=== PATIENT | female | born 1940 | race Caucasian/White ===

== ENCOUNTER 2017-02-27 15:56 | Inpatient (IN) | payer MEDICARE, BC ==
--- NOTE | ~2017-02-27 | EGD ---
EGD REPORT [facility] [address] [address] NAME: MAGALIE CARTER : 40 STATUS : ADM IN PAT#: [id number] AGE: 76 ADM/REG DATE : 02/27/17 MR#: [id number] REPORT SERV DATE: 04/03/17 DICTATED BY: OSCAR HOOKS DATE: 04/03/17 REPORT STATUS : Draft TRANSCRIBED BY: [facility] DATE: 04/03/17 Endoscopy Center Patient Name: Magalie Carter Date of : 1940 Attending MD: OSCAR HOOKS MD Procedure Date No Time: 03/23/2017 Procedure: Upper GI endoscopy Indications: Place PEG because patient is unable to eat, Place PEG due to dysphagia, Place PEG due to impaired swallowing Referring MD: RUBEN FRANCO MD Medicines: Monitored Anesthesia Care Complications: No immediate complications. Estimated blood loss: Minimal. Procedure: Pre-Anesthesia Assessment: - ASA Grade Assessment: IV - A patient with severe systemic disease that is a constant threat to life. After obtaining informed consent, the endoscope was passed under direct vision. Throughout the procedure, the patient's blood pressure, pulse, and oxygen saturations were monitored continuously. The GIF [id number] was introduced through the mouth, and advanced to the second part of duodenum. The upper GI endoscopy was accomplished without difficulty. The patient tolerated the procedure well. Findings: No gross lesions were noted in the entire esophagus. The entire examined stomach was normal. The patient was placed in the supine position for PEG placement. The stomach was insufflated to appose gastric and abdominal spring. A site was located in the body of the stomach with excellent transillumination and manual external pressure for placement. The abdominal wall was marked and prepped in a sterile manner. The area was anesthetized with 4 mL of 1% lidocaine. The trocar needle was introduced through the abdominal wall and into the stomach under direct endoscopic view. A snare was introduced through the endoscope and opened in the gastric lumen. The guide wire was passed through the trocar and into the open snare. The snare was closed around the guide wire. The endoscope and snare were removed, pulling the wire out through the mouth. A skin incision was made at the site of needle insertion. The externally removable 20 Fr EndoVive Safety gastrostomy tube was lubricated. The G-tube was passed over the guide wire through the mouth, and into the stomach. The trocar needle was removed, and the gastrostomy tube was pulled out from the stomach through the skin. The guide wire was removed, and the external bumper attached to the gastrostomy tube. The feeding tube was then cut to an appropriate EGD REPORT [address] [place]. [address] NAME: MAGALIE CARTER : [birth year] STATUS : ADM IN [facility]#: [id number] AGE: 76 ADM/REG DATE : 02/27/17 MR#: [id number] REPORT SERV DATE: 04/03/17 DICTATED BY: OSCAR HOOKS DATE: 04/03/17 REPORT STATUS : Draft TRANSCRIBED BY: [employer] DATE: 04/03/17 length. The final position of the gastrostomy tube was confirmed by relook endoscopy, and skin marking noted to be 2.5 cm at the external bumper. The final tension and compression of the abdominal wall by the PEG tube and external bumper were checked and revealed that the bumper was loose and lightly touching the skin. The feeding tube was capped, and the tube site was cleaned and dressed. Estimated blood loss was minimal. No gross lesions were noted in the entire examined duodenum. Impression: - An externally removable PEG placement was successfully completed. Recommendation: - Please follow the post-PEG recommendations including: change dressing once per day, clean site with soap and water daily and dry thoroughly, dry dressing only, remove dressing after 2 weeks, NPO x4 hrs then water today, may use PEG today for meds and water and may use PEG tomorrow for feedings. Procedure Code(s): --- Professional --- 72732, Esophagogastroduodenoscopy, flexible, transoral; with directed placement of percutaneous gastrostomy tube Diagnosis Code(s): --- Professional --- R63.3, Feeding difficulties Z43.1, Encounter for attention to gastrostomy R13.10, Dysphagia, unspecified CPT copyright 2013 [employer]. All rights reserved. The codes documented in this report are preliminary and upon medical record coder review may be revised to meet current compliance requirements. Oscar Hooks MD OSCAR HOOKS MD 03/23/2017 12:16 PM This report has been signed electronically. Number of Addenda: 0 Note Initiated On: 03/23/2017 11:19 AM Scope Withdrawal Time 0 hours 0 minutes 0 seconds [address] [place] [address]
--- NOTE | ~2017-02-27 | IDS ---
Interim Discharge Summary [facility] [address] [place]. [address] NAME: KENYA CARTER : 40 STATUS : ADM IN PAT#: [id number] AGE: 76 ADM/REG DATE : 02/27/17 MR#: [id number] REPORT SERV DATE: 03/27/17 DICTATED BY: SANTO TAPIA DATE: 03/26/17 REPORT STATUS : Draft TRANSCRIBED BY: MODClif DATE: 03/26/17 ADMISSION DATE: 02/27/2017 DISCHARGE DATE: CURRENT INTERIM DIAGNOSES LIST: Includes: 1. Recurrent Clostridium difficile colitis. 2. Lung cancer, non-small cell. 3. Fever of unclear origin or source. Questionable aspiratory event versus tumor fever. 4. Severe protein calorie malnutrition and hypoalbuminemia. 5. Hypothyroidism. Most recent TSH 0.300 with Synthroid dosage reduced during this admission. 6. Debility. 7. Neutropenia, declining white blood cells to 2.7. 8. Sinus tachycardia. 9. Encephalopathy that is multifactorial and toxic versus metabolic at this point. 10.Stomatitis and oral ulcers that are improving. 11.Hypotension that is fully resolved. HISTORY OF PRESENT ILLNESS: A 76-year-old female, originally presented to [facility] with weakness, fever, and diarrhea. Please see initial H and P of Dr. Va Rose as the patient was admitted to the Hospitalist Service for further evaluation and treatment. Please also see the interim discharge summaries of Dr. Tristian Fuentes and Dr. Jaquan Schaefer as this interim summary will cover the dates of 03/20/2017 until 03/26/2017. CONTINUATION OF HOSPITAL COURSE: I began seeing the patient on 03/20/2017, where she was continued on her antibiotic therapy of Vancocin p.o. In review of her lab work, her TSH was noted to be low and her Synthroid dosage was decreased. She was having high fevers of 102.1. Blood cultures and urinalysis were checked with the assistance of Infectious Disease, Dr. Alejandro Jeffers, whom I had numerous conversations with over the course of this week as well, and that workup has been essentially benign with blood cultures so far negative, urinalysis was negative as well. On further discussion, there was question of whether or not she was aspirating, causing these fevers, given her chronically ill and bed- bound state and I discussed at length with the patient and the patient's need for nutritional support and they agreed on placement of a PEG tube, so a PEG was placed on 03/23/[address] Valenzuela, and tube feeding has been initiated. Prior to this, she did have a modified barium swallow study that did show no aspiration seen on exam, but she did have two swallows to clear her food. I have instructed that the patient is to remain n.p.o. and to use her PEG tube for all feeding and medicines at this time. The patient has continued to have fevers on and off, has had a waxing and waning mental status up into the point where she will not even communicate with you at some visits, and other visits, will communicate with you. Overall, outlook and prognosis are poor and I have had multiple discussions with Dr. Fulton, Oncology; Dr. Jeffers, Infectious Disease; and Dr. Sibley, Palliative Care, was consulted and has met with the patient and her family as well to help with transition of care issues and overall planning. I did obtain a CT scan of the abdomen and chest to rule out any type of abscess and other than showing a moderate left pleural effusion, there were no acute findings; all other findings were chronic and known lung Interim Discharge Summary [address] [address] NAME: KENYA CARTER : [birth year] STATUS : ADM IN [facility]#: [id number] AGE: 76 ADM/REG DATE : 02/27/17 MR#: [id number] REPORT SERV DATE: 03/27/17 DICTATED BY: SANTO TAPIA DATE: 03/26/17 REPORT STATUS : Draft TRANSCRIBED BY: JESUS DATE: 03/26/17 cancer. I had a lengthy discussion with the on 03/26/2017 regarding her clinical course, prognosis, decline, and fevers and we discussed palliative care, we discussed hospice, we discussed continuing her current course, and he wishes to continue her present course of treatment with eventual plan of getting to a fdc facility and then home, but is willing to reassess if she further declines. She has a rather flat affect on most visits. We appreciate all of the consultants' help on this admission here. WILLIAM/JESUS Santo Tapia NP / [id number] CC: Temitope Tinoco M.D.
--- NOTE | ~2017-02-27 | CN ---
Consultation Report [facility] [address] [place]. [address] NAME: KENYA CARTER : [birth year] STATUS : ADM IN [facility]#: [id number] AGE: 76 ADM/REG DATE : 02/27/17 MR#: [id number] REPORT SERV DATE: 03/05/17 DICTATED BY: KAI PAN DATE: 03/03/17 REPORT STATUS : Draft TRANSCRIBED BY: MODL DATE: 03/03/17 GENERAL SURGERY CONSULTATION DATE OF CONSULTATION: 03/01/2017 CONSULTED PHYSICIAN: Dr. Pan. REASON FOR CONSULTATION: C. difficile colitis. HISTORY OF PRESENT ILLNESS: This is a 76-year-old female, who was admitted on 02/27/2017 with abdominal pain, lethargy, and fever. Of note, she was recently diagnosed with C. diff colitis a week ago by her primary care doctor and treated as an outpatient with oral vancomycin. For about the past week, she has had persistent abdominal pain and diarrhea as well as fevers and lethargy; this has not improved since being started on p.o. vancomycin for her colitis. She has never had C. diff before, this is a current diagnosis PAST MEDICAL HISTORY: Includes history of a non-small cell lung cancer, status post chemo and radiation therapy secondary to unresectable disease. She also has chronic lymphocytic leukemia, is on chemotherapy for that. She also recently was diagnosed with a small subsegmental pulmonary embolism and is normal on Eliquis for that. She is also hypothyroid and has osteoarthritis. PAST SURGICAL HISTORY: Includes hysterectomy and left hip replacement. MEDICATIONS: Include Tylenol, Eliquis, Lomotil, Advil, Synthroid, Gilotrif which is the chemotherapeutic agent that she is on, as well as vancomycin. SOCIAL HISTORY: No tobacco or alcohol use. FAMILY HISTORY: Noncontributory. PHYSICAL EXAMINATION: VITAL SIGNS: 98/53, heart rate 84, 98.8, 18 respiratory rate, and 100% on room air. GENERAL: Patient is in no acute distress. She is alert and oriented x3. CARDIAC: Regular rate and rhythm. No murmurs, rubs, or gallops. LUNGS: Clear to auscultation bilaterally without wheezes, rales, or rhonchi. ABDOMEN: Distended, tympanic, mildly diffusely tender to palpation, slightly worse in the lower quadrants but overall minimally tender. No guarding or peritonitis. LABORATORY DATA: White blood cell count 1.7, hematocrit 30.8, and platelets 117. Sodium 133, potassium 3.9, chloride 105, CO2 of 18, BUN 14, creatinine 0.9, blood glucose 80, and lactate 2.2. ASSESSMENT AND PLAN: This is a 76-year-old female with C. difficile colitis and neutropenia likely secondary to chemotherapy. She is also on Eliquis. Her CT scan was significant for Consultation Report [place] [id number] [address] [place] [address]. [address] NAME: KENYA CARTER : 40 STATUS : ADM IN [facility]#: [id number] AGE: 76 ADM/REG DATE : 02/27/17 MR#: [id number] REPORT SERV DATE: 03/05/17 DICTATED BY: KAI PAN DATE: 03/03/17 REPORT STATUS : Draft TRANSCRIBED BY: JESUS DATE: 03/03/17 some free fluid in the pelvis but no free air in her abdomen. Her colon is not very dilated or thickened, I am not concerned for perforation at this point. I would not recommend any surgical management of her C. diff colitis at this time. Will continue vancomycin and IV Flagyl. Thank you for the consultation. DICTATED BY: MD JANET Almeida/JESUS Kai Pan M.D. / [id number] CC: MD Shaq Moore II, M.D.
--- NOTE | ~2017-02-27 | CN ---
Consultation Report [facility] [address] [place]. [address] NAME: KENYA CARTER : 40 STATUS : ADM IN PAT#: [id number] AGE: 76 ADM/REG DATE : 02/27/17 MR#: [id number] REPORT SERV DATE: 03/01/17 DICTATED BY: MARK PRICE DATE: 03/01/17 REPORT STATUS : Draft TRANSCRIBED BY: MODL DATE: 03/01/17 INFECTIOUS DISEASE CONSULT DATE OF CONSULTATION: REASON FOR REFERRAL: Evaluation and treatment of severe Clostridium difficile colitis. HISTORY OF PRESENT ILLNESS: The patient is a 76-year-old female. She has a history of degenerative joint disease, hypothyroidism. She has chronic lymphocytic leukemia. She has been diagnosed with non-small cell cancer of the lung and has been treated with radiation and chemotherapy for that and is on a chronic treatment that has led to chronic neutropenia. In December, she developed diarrhea and was diagnosed with Clostridium difficile colitis. She states she was treated with oral vancomycin and improved, that was directed by Dr. Jose Michel and he treated her with four times a day treatment between two and three weeks and then tapered it. Per her , approximately two weeks after finishing that, the diarrhea returned. She had diarrhea for almost two weeks before she sought any medical treatment for that, this was five days ago. Her primary care physician placed her on oral vancomycin, but she continued to have diarrhea and was admitted here two days ago, that was continued along with IV Flagyl. It seemed to improve somewhat yesterday, but today, she looks worse, more toxic, has more abdominal pain, was less alert this morning. She continued to have three to four episodes of diarrhea per day. She is not complaining of headache, difficulty swallowing. No cough or shortness of breath. No joint pain or skin rash. Really, no other symptoms. A CT scan was done of the abdomen and pelvis when she came in the night before last, and this showed some airspace changes in the left lung base that was most likely atelectasis and perhaps a small pleural effusion with mild amount of atelectasis on the right lower lung. There was some air, liquid, fecal material with a distended cecum that was nonspecific. Followup chest x-rays continued to show the atelectasis that is potentially little bit worse, but there is no clear evidence of infiltrate there, and she is not coughing. PAST MEDICAL HISTORY: Otherwise unremarkable. MEDICATIONS: As mentioned above. ALLERGIES: NO KNOWN ANTIMICROBIAL ALLERGIES. SOCIAL HISTORY: She is . Her is with her in the room. She is nonsmoker. No history of alcohol or substance abuse. FAMILY HISTORY: Noncontributory. PHYSICAL EXAMINATION: GENERAL: Ill-appearing elderly female, lying quietly in bed. She does answer some questions, but seems to drift off very quickly when not being spoken to. Consultation Report [place] [id number] [address] [address] NAME: KENYA CARTER : 40 STATUS : ADM IN [facility]#: [id number] AGE: 76 ADM/REG DATE : 02/27/17 MR#: [id number] REPORT SERV DATE: 03/01/17 DICTATED BY: MARK PRICE DATE: 03/01/17 REPORT STATUS : Draft TRANSCRIBED BY: JESUS DATE: 03/01/17 VITAL SIGNS: Temperature was 101.2 last evening, was 100.1 just a couple of hours ago with a pulse of 96, respirations 17, blood pressure 125/72, weight 52 kg. HEENT: Sclerae clear. No oral lesions. NECK: Supple. LUNGS: Decreased breath sounds in the bases bilaterally. Otherwise, clear. HEART: Regular rate and rhythm. ABDOMEN: Distended, tender with guarding, but no rebound. Positive bowel sounds heard. EXTREMITIES: Without clubbing, cyanosis, or edema. LABORATORY DATA: White count 1.1 when she came in, it is 1.7 today, hematocrit 30.8, and platelets 117. 12% segs, 8% bands on the differential. BUN and creatinine 14 and 0.96. Procalcitonin 0.75 at admission. IMPRESSION: I feel this is all due to the Clostridium difficile colitis and has not responded to treatment thus far. I think the chest x-ray and CT findings in the lungs are due to atelectasis related to her abdominal discomfort. I do not suspect a pneumonia or any other source of infection outside of the gut. It could be she is simply not able to control the Clostridium difficile because of her chronic neutropenia and immunosuppressed state. RECOMMENDATIONS: 1. Continue the IV Flagyl and oral vancomycin. 2. Repeat CT to see if there are changes suggestive of worsening complications of C difficile. 3. Go ahead and ask Surgery to see and be aware of the patient in case she needs a colectomy. 4. Finally, I will follow the patient closely with you. I appreciate very much your consulting on this patient. JHON Mark Price M.D. / [id number] CC: MD Shaq Moore II, M.D.
--- NOTE | ~2017-02-27 | IDS ---
Interim Discharge Summary [facility] [address] [place]. [address] NAME: KENYA CARTER : 40 STATUS : ADM IN [facility]#: [id number] AGE: 76 ADM/REG DATE : 02/27/17 MR#: [id number] REPORT SERV DATE: 04/02/17 DICTATED BY: BHARAT BRUCE II DATE: 04/02/17 REPORT STATUS : Draft TRANSCRIBED BY: MODClif DATE: 04/02/17 ADMISSION DATE: 02/27/2017 DISCHARGE DATE: DATE OF INTERIM: 04/02/2017. INTERIM DIAGNOSES: 1. Recurrent Clostridium difficile colitis with most recent stool sample negative for Clostridium difficile antigen. 2. Persistent abdominal pain and distention and difficulty tolerating tube feeds. 3. Sepsis with recurrent fevers of uncertain source though given the patient's abdominal pain, questionable peritonitis or cholangitis. 4. Elevated LFTs with ultrasound, positive for gallstones and sludge, though HIDA scan was negative. 5. Severe protein-calorie malnutrition, status post PEG. 6. Dysphagia. 7. Pancytopenia. 8. History of PE on Lovenox. 9. Severe deconditioning and debility. 10.Metabolic encephalopathy, which has resolved. 11.Dermatitis with oral ulcers, that is dramatically improved. 12.History of hypothyroidism. 13.History of lung cancer, previously stable on oral therapy. 14.History of chronic lymphocytic leukemia. 15.Splenomegaly, which is stable. HOSPITAL COURSE: Details of the patient's hospital course, please see multiple prior interim summaries. Regarding the patient's Clostridium difficile colitis, multiple recurrent CT scans have not shown any evidence for toxic alistair colon, bowel wall thickening, or inflammation. Her repeat Clostridium difficile stool antigen was negative and it seems unclear if her Clostridium difficile is still playing a significant role in her current illness. She has persistent diffuse abdominal pain and tenderness. This did seem to get somewhat worse after her PEG tube was placed. She gets distended when tube feeds were attempted to advance, and this has been intermittently stopped with improvement in her distention. Her tube feeds have now been restarted at 10, and now since she is tolerating with good bowel movements, we will advance to 20. For Clostridium difficile colitis, she remains on p.o. vancomycin. Her diffuse abdominal tenderness is of uncertain origin especially in light of her persistent sepsis with recurrent fevers. Dr. Hoover has subsequently come on and changed her antibiotic regimen to daptomycin, Zosyn, and micafungin while continuing oral vancomycin. Her procalcitonin has been trending up to 7 despite being on vancomycin and aztreonam with Flagyl. Since the antibiotic change, her procalcitonin has continued to decline and it seems her fevers are less intense and now been afebrile for 24 hours. Source of her fevers and sepsis is still uncertain. Given her prolonged pain especially around her PEG tube site and prior CTs done without contrast, a CT with contrast was done for evaluation of PEG tube and possible abscess with again returning fairly unremarkable. She was noted to have a mild to moderately elevated LFTs concerning for Interim Discharge Summary [address] [place]. [address] NAME: KENYA CARTER : 40 STATUS : ADM IN PAT#: [id number] AGE: 76 ADM/REG DATE : 02/27/17 MR#: [id number] REPORT SERV DATE: 04/02/17 DICTATED BY: BHARAT BRUCE II DATE: 04/02/17 REPORT STATUS : Draft TRANSCRIBED BY: MODClif DATE: 04/02/17 possible cholecystitis or cholangitis. Ultrasound of gallbladder showed a few subcentimeter gallstones and sludge in the dependent portion of the gallbladder. There was a borderline gallbladder wall thickening about 5 mm, but no bile duct dilatation and her persistent liver cyst. Given concern for cholecystitis, a HIDA scan was performed, which showed an EF of 73%, normal scan. Given the normal HIDA, no convincing evidence was presented for consideration for possible cholecystectomy intervention. Her AST and ALT have continued to trend down and near normal now. Her alkaline phosphatase remains around 400. Otherwise, her white blood cell count had trended down during this period of what appeared to be worsening sepsis, and Oncology restarted Neupogen. Her white count has begun to improve. Her hemoglobin has remained stable between 8-9 though her platelets seem to be trending down for unknown reason. Unfortunately, her Lovenox had been held after the PEG tube placed and was never restarted, which will be restarted today. This was for her history of pulmonary embolus. Otherwise, she remains severely deconditioned and weak. PT is held off on seeing her given her underlying illness and inability to participate this past week. Regarding her overall condition, disposition and consideration for palliation and hospice, her sister has been the main one that was pushing for hospice and this was considered happily. After the change in antibiotic regimen, it was discussed with the patient whether or not she wanted to continue or to go home on hospice. The patient's and son were reluctant to discontinue present management and when the patient was asked directly her wishes, she stated she wanted to continue to try and see if the antibiotics work, so hospice has been put on hold, though they did visit for an informational session. Also given her history of CLL and splenomegaly, this was discussed as a possible contribution to her underlying illness with Oncology though they have stated this is fairly low likelihood. At this point, her condition is still quite guarded and if present management is unable to continue in a positive trend, the patient's family would like to go home on hospice. If she is able to recover, then certainly SNF is in her future. Dr. Sibley will take over the patient's care starting tomorrow. CONSUELO/JESUS Bharat Bruce II, MD / [id number] CC: MD Shaq Moore II, M.D.
--- NOTE | ~2017-02-27 | IDS ---
Interim Discharge Summary [facility] [address] [place]. [address] NAME: KENYA CARTER : 40 STATUS : ADM IN [facility]#: [id number] AGE: 76 ADM/REG DATE : 02/27/17 MR#: [id number] REPORT SERV DATE: 03/06/17 DICTATED BY: BHARAT BRUCE II DATE: 03/05/17 REPORT STATUS : Draft TRANSCRIBED BY: MODClif DATE: 03/05/17 ADMISSION DATE: 02/27/2017 DISCHARGE DATE: DATE OF INTERIM: 03/05/2017. INTERIM DIAGNOSES: 1. 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 2. Sepsis. 3. Hypotension. 4. Pancytopenia, likely secondary to CLL. 5. Non-small cell lung cancer, on oral chemotherapy. 6. History of pulmonary embolism, currently Eliquis on hold. 7. Ascites. CONSULTS: 1. Dr. Vásquez with Surgery. 2. Dr. Jeffers with Infectious Disease. 3. Dr. Jose Fulton, with [facility]. BRIEF HISTORY OF PRESENT ILLNESS: The patient is a 76-year-old female with the above history who presented to [facility] due to weakness, fever, diarrhea, secondary recurrent C. diff. For detailed history and physical examination, please see Dr. Va Rose's note from 02/27/2017. HOSPITAL COURSE: On admission, the patient was indeed having frequent diarrhea with abdominal distention and pain. CT abdomen and pelvis showed retroperitoneal adenopathy and mildly air and liquid filled fecal material with a distended cecum, ascending colon, and portion of transverse colon. Also some diverticulosis but no diverticulitis. She was continued on oral vancomycin and started on IV Flagyl. Over the course of the next 24 to 48 hours, the patient started having recurrent fever with hypotension. At that point, Dr. Jeffers and Dr. 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 Followup CTs have demonstrated some mild ascites and nonspecific findings though no evidence of perforation or megacolon. She has had 3 CTs in total as she has had recurrent episodes of fever and hypotension most recently on 03/04/2017 where she was moved to the [facility] [place]. Currently, a PICC line has been placed precautionary for possible pressors as well as initiating TPN as she has had poor appetite. Given the recurrent fevers, Dr. Jeffers has started her on Azactam as Dr. Hunt and Dr. Vásquez thought that she possibly representing more of neutropenic colitis than progression to toxic alistair colon and C. difficile colitis. Dr. Jeffers also has mentioned starting IV vancomycin. At this point unless the patient decompensates, Surgery is holding off on doing a colectomy as the prognosis is generally poor so we will continue to watch in the IMCU, provide supportive care and antibiotics per ID. Dr. Jaquan Schaefer will take over the patient's care starting tomorrow. Interim Discharge Summary [address] [address] NAME: KENYA CARTER : 40 STATUS : ADM IN [facility]#: [id number] AGE: 76 ADM/REG DATE : 02/27/17 MR#: [id number] REPORT SERV DATE: 03/06/17 DICTATED BY: BHARAT BRUCE II DATE: 03/05/17 REPORT STATUS : Draft TRANSCRIBED BY: JESUS DATE: 03/05/17 CONSUELO/JESUS Bharat Bruce II, MD / [id number] CC: MD Shaq Moore II, M.D.
--- NOTE | ~2017-02-27 | EGD ---
EGD REPORT [facility] [address] [address] NAME: MAGALIE CARTER : 40 STATUS : ADM IN PAT#: [id number] AGE: 76 ADM/REG DATE : 02/27/17 MR#: [id number] REPORT SERV DATE: 04/03/17 DICTATED BY: OSCAR HOOKS DATE: 04/03/17 REPORT STATUS : Draft TRANSCRIBED BY: [facility] DATE: 04/03/17 Endoscopy Center Patient Name: Magalie Carter Date of : 1940 Attending MD: OSCAR HOOKS MD Procedure Date No Time: 03/23/2017 Procedure: Upper GI endoscopy Indications: Place PEG because patient is unable to eat, Place PEG due to dysphagia, Place PEG due to impaired swallowing Referring MD: RUBEN FRANCO MD Medicines: Monitored Anesthesia Care Complications: No immediate complications. Estimated blood loss: Minimal. Procedure: Pre-Anesthesia Assessment: - ASA Grade Assessment: IV - A patient with severe systemic disease that is a constant threat to life. After obtaining informed consent, the endoscope was passed under direct vision. Throughout the procedure, the patient's blood pressure, pulse, and oxygen saturations were monitored continuously. The GIF [id number] was introduced through the mouth, and advanced to the second part of duodenum. The upper GI endoscopy was accomplished without difficulty. The patient tolerated the procedure well. Findings: No gross lesions were noted in the entire esophagus. The entire examined stomach was normal. The patient was placed in the supine position for PEG placement. The stomach was insufflated to appose gastric and abdominal spring. A site was located in the body of the stomach with excellent transillumination and manual external pressure for placement. The abdominal wall was marked and prepped in a sterile manner. The area was anesthetized with 4 mL of 1% lidocaine. The trocar needle was introduced through the abdominal wall and into the stomach under direct endoscopic view. A snare was introduced through the endoscope and opened in the gastric lumen. The guide wire was passed through the trocar and into the open snare. The snare was closed around the guide wire. The endoscope and snare were removed, pulling the wire out through the mouth. A skin incision was made at the site of needle insertion. The externally removable 20 Fr EndoVive Safety gastrostomy tube was lubricated. The G-tube was passed over the guide wire through the mouth, and into the stomach. The trocar needle was removed, and the gastrostomy tube was pulled out from the stomach through the skin. The guide wire was removed, and the external bumper attached to the gastrostomy tube. The feeding tube was then cut to an appropriate EGD REPORT [address] [place]. [address] NAME: MAGALIE CARTER : 40 STATUS : ADM IN [facility]#: [id number] AGE: 76 ADM/REG DATE : 02/27/17 MR#: [id number] REPORT SERV DATE: 04/03/17 DICTATED BY: OSCAR HOOKS DATE: 04/03/17 REPORT STATUS : Draft TRANSCRIBED BY: [employer] DATE: 04/03/17 length. The final position of the gastrostomy tube was confirmed by relook endoscopy, and skin marking noted to be 2.5 cm at the external bumper. The final tension and compression of the abdominal wall by the PEG tube and external bumper were checked and revealed that the bumper was loose and lightly touching the skin. The feeding tube was capped, and the tube site was cleaned and dressed. Estimated blood loss was minimal. No gross lesions were noted in the entire examined duodenum. Impression: - An externally removable PEG placement was successfully completed. Recommendation: - Please follow the post-PEG recommendations including: change dressing once per day, clean site with soap and water daily and dry thoroughly, dry dressing only, remove dressing after 2 weeks, NPO x4 hrs then water today, may use PEG today for meds and water and may use PEG tomorrow for feedings. Procedure Code(s): --- Professional --- 82751, Esophagogastroduodenoscopy, flexible, transoral; with directed placement of percutaneous gastrostomy tube Diagnosis Code(s): --- Professional --- R63.3, Feeding difficulties Z43.1, Encounter for attention to gastrostomy R13.10, Dysphagia, unspecified CPT copyright 2013 [employer]. All rights reserved. The codes documented in this report are preliminary and upon block machine operator review may be revised to meet current compliance requirements. Oscar Hooks MD OSCAR HOOKS MD 03/23/2017 12:16 PM This report has been signed electronically. Number of Addenda: 0 Note Initiated On: 03/23/2017 11:19 AM Scope Withdrawal Time 0 hours 0 minutes 0 seconds [address] [place] [address]
--- NOTE | ~2017-02-27 | HP ---
History And Physical [place] [id number] [facility] [place]. [address] NAME: KENYA CARTER : 40 STATUS : ADM IN [facility]#: [id number] AGE: 76 ADM/REG DATE : 02/27/17 MR#: [id number] REPORT SERV DATE: 03/08/17 DICTATED BY: JAMES RAMOS DATE: 03/07/17 REPORT STATUS : Draft TRANSCRIBED BY: MODClif DATE: 03/07/17 DATE OF ADMISSION: 02/27/2017 CHIEF COMPLAINT: Rule out left hip sepsis. HISTORY: A 76-year-old female who has multiple medical issues, admitted with lung cancer diagnosed in 2012, has severe sepsis and neutropenia. She has ill-defined left hip pain and unclear source of infection per Dr. Jeffers for which I was consulted to rule out hip infection. She has had a previous hemiarthroplasty done by another surgeon. ALLERGIES: NONE. MEDICATIONS: See chart. PAST MEDICAL HISTORY: Cataracts, lung cancer diagnosed in 2012, hypothyroidism, anxiety. PAST SURGICAL HISTORY: Hysterectomy and appendectomy in 1987, left partial hip replacement by another surgeon in 2005, lung biopsy in 2012, partial thyroidectomy in 1975. SOCIAL HISTORY: Four years of tobacco, reportedly quit. Usually drink two alcoholic beverages three days a week. No illicit drugs reported. REVIEW OF SYSTEMS: As reported above with recurrent C. diff as well and abdominal pain. PHYSICAL EXAMINATION: GENERAL: She is emaciated in an appearance, intermittently coherent. Difficult to get any kind of history. It is very difficult to tell what her source of pain is with somewhat restricted range of motion of hip. No clear evidence of infection in that hip. SKIN: Otherwise intact. NEURO: Unable to really cooperate well with neuro, although did not appear asymmetric with overall skin and muscle atrophy. X-RAY: Left hip hemiarthroplasty without complications. ASSESSMENT: Neutropenia, lung cancer, history of hemiarthroplasty, sepsis of unclear etiology, but no evidence of infection of the hip. PLAN: I discussed with Dr. Jeffers and recommended hip aspirate if this is a concern, but reportedly per the hospitalist, she is too sick for such a procedure with significant hypotension. I do not have anything else to add constructively at this point. If her situation changes, I would be happy to participate in her care. We recommend comfort measures, but again I am happy to get re-involved if her condition changes. History And Physical [facility] [address] [place]. [address] NAME: KENYA CARTER : 40 STATUS : ADM IN PAT#: [id number] AGE: 76 ADM/REG DATE : 02/27/17 MR#: [id number] REPORT SERV DATE: 03/08/17 DICTATED BY: JAMES RAMOS DATE: 03/07/17 REPORT STATUS : Draft TRANSCRIBED BY: MODClif DATE: 03/07/17 WTB/LUCIANOL Enid Ramos M.D. / [id number] CC: MD Shaq Zapata M.D.
--- NOTE | ~2017-02-27 | IDS ---
Interim Discharge Summary [facility] [address] [place]. [address] NAME: KENYA CARTER : 40 STATUS : ADM IN [facility]#: [id number] AGE: 76 ADM/REG DATE : 02/27/17 MR#: [id number] REPORT SERV DATE: 04/09/17 DICTATED BY: JOYCE WHITESIDE DATE: 04/09/17 REPORT STATUS : Draft TRANSCRIBED BY: MODClif DATE: 04/09/17 ADMISSION DATE: 02/27/2017 DISCHARGE DATE: DATE OF DISCHARGE: Unknown. DATE OF INTERIM NOTE: 04/03/2017 through 04/09/2017. INTERIM DIAGNOSES: 1. Recurrent clostridium difficile colitis. 2. Persistent abdominal pain and distention, with difficulty tolerating tube feeds. 3. Severe malnutrition. 4. Recurrent sepsis and fevers. 5. Debility. 6. Dysphagia. 7. Pancytopenia. 8. History of pulmonary embolism on Lovenox. 9. Metabolic encephalopathy, resolved. 10.Dermatitis with oral ulcers, resolved. 11.Hypothyroidism. 12.History of lung cancer. 13.History of chronic lymphocytic leukemia. 14.Splenomegaly, stable. COURSE OF HOSPITAL STAY: Please refer to history and physical AND interim note previously dictated for complete admission and interim summaries. This patient is a 76-year-old female, who was admitted on 02/27/2017, with complaints at the time of admission of weakness, fever, and diarrhea for greater than seven days. The patient stated that it was progressively worse on the day of admission. She is under the care of her primary care Dr. Davenport and Dr. Jose Michel her oncologist. She does present with a history of non-small cell lung cancer, currently on chemo and radiation treatments. She also presents with a history of CLL, and history of C. diff. The patient has had repeat C diff testing which was negative. The patient is continuing on her p.o. vancomycin at this time. The patient has had complaints of abdominal pain and tenderness this has improved. The patient does have severe malnutrition, PEG tube was placed. At this time, tube feedings are at goal at 55 mL an hour. Diet has been added for the patient to begin clear liquid diet as tolerated. The patient did pass a swallow study on maybe 03/22/2017. The patient has had sepsis with recurrent fevers. Infectious Disease is following at this time. Plan of care is to complete antibiotics today. Check lab work in a.m. The patient has had complaints of extreme weakness. Physical Therapy has been re-evaluated and following the patient. We will plan to discharge to a intermediate facility within two to three days. The patient and spouse have chosen [facility] intermediate facility. manager chemistry is working with the patient regarding discharge needs. This patient will be followed by Dr. Tristian Fuentes. Interim Discharge Summary [address] [address] NAME: KENYA CARTER : 40 STATUS : ADM IN [facility]#: [id number] AGE: 76 ADM/REG DATE : 02/27/17 MR#: [id number] REPORT SERV DATE: 04/09/17 DICTATED BY: JOYCE WHITESIDE DATE: 04/09/17 REPORT STATUS : Draft TRANSCRIBED BY: JESUS DATE: 04/09/17 [facility]/JESUS Joyce Whiteside NP / [id number] CC: Temitope Tinoco M.D.
--- NOTE | ~2017-02-27 | IDS ---
Interim Discharge Summary [facility] [address] [place]. [address] NAME: KENYA CARTER : 40 STATUS : ADM IN [facility]#: [id number] AGE: 76 ADM/REG DATE : 02/27/17 MR#: [id number] REPORT SERV DATE: 03/19/17 DICTATED BY: BHARAT BRUCE II DATE: 03/19/17 REPORT STATUS : Draft TRANSCRIBED BY: MODClif DATE: 03/19/17 ADMISSION DATE: 02/27/2017 DISCHARGE DATE: DATE OF INTERIM: 03/19/2017. INTERIM DIAGNOSES: 1. Recurrent Clostridium difficile colitis with neutropenic colitis. 2. Anasarca, resolved. 3. Severe protein-calorie malnutrition and anorexia, on TPN. 4. Stomatitis with oral ulcers and bleeding lip ulcer. 5. Debility with generalized weakness and deconditioning. 6. History of pulmonary embolism, on Lovenox. 7. Hypotension, previously on midodrine. 8. Pancytopenia, currently improved with normalization of white count and platelets. Anemia persisted, though hemoglobin stable. CONSULTS: Dr. Alejandro Jeffers with Infectious Disease, Dr. Jose Michel with [facility], Dr. Vásquez with surgery, Dr. Fung with Ortho. BRIEF HISTORY OF PRESENT ILLNESS: The patient is a 76-year-old female with the above history who presented to [facility] due to weakness, fever, and diarrhea. For detailed history and physical examination, please see Dr. Rose's note from 02/27/2017. HOSPITAL COURSE: For details of the patient's prolonged hospitalization, please see interim summaries by myself and Dr. Schaefer as well as various consultants. Currently regarding the patient's C. difficile colitis and neutropenic colitis, she has been taken off all antibiotics except for oral vancomycin and oral Valtrex. Infectious Disease is following. Her diarrhea has been essentially resolved for sometime, though she continues to have fairly chronic low lying abdominal pain, poor appetite, and anorexia requiring TPN. She has over the last week intermittently spiked low-grade fevers of 100.7 and yesterday 101, though no clear indication for escalation of antibiotics at this point according to Infectious Disease. She was briefly on Azactam and micafungin for about a week with resolution of fevers and stabilization of her vitals. In addition to her poor appetite, she has developed what appears to be oral ulcers, a lip ulcer of uncertain etiology, though Dr. Jeffers started the patient on Valtrex. She has actually developed fairly significant amount of blood in her mouth most likely due to the fact she keeps chewing on her lip lesion and picking of it causing to bleed frequently. No current evidence for hemoptysis or hematemesis. Clinically, she seems to wax and wane on any given day, though overall her attitude and energy level seems to have improved. The main limitation seems to be appetite and poor p.o. intake at this point. She is getting MD Jeffers for her oral ulcers and oral care. Once the patient can be weaned off TPN, she will need to rehab in a longterm facility. Otherwise, for history of pulmonary embolism she is on Lovenox. Her oral chemotherapy is on hold for non-small cell lung cancer, and since her hypotension seems to improving and her blood pressures in the 100s to 130s, we will discontinue midodrine. In regard to her recent recurrent fevers, chest x-ray and urinalysis have been unremarkable. Interim Discharge Summary [address] [address] NAME: KENYA CARTER : 40 STATUS : ADM IN [facility]#: [id number] AGE: 76 ADM/REG DATE : 02/27/17 MR#: [id number] REPORT SERV DATE: 03/19/17 DICTATED BY: BHARAT BRUCE II DATE: 03/19/17 REPORT STATUS : Draft TRANSCRIBED BY: MODL DATE: 03/19/17 Blood cultures have also been negative. It is uncertain at this time as to when she will be able to come off TPN, though seems to be improving slowly. Of note, Dr. Sibley, who will take over the patient's care starting tomorrow. CONSUELO/JESUS Bharat Bruce II, MD / [id number] CC: MD Shaq Moore II, M.D.
--- NOTE | ~2017-02-27 | HP ---
History And Physical [facility] [address] [place]. [address] NAME: KENYA CARTER : 40 STATUS : AD[facility]#: [id number] AGE: 76 ADM/REG DATE : 02/27/17 MR#: [id number] REPORT SERV DATE: 02/28/17 DICTATED BY: VA MIGUEL DATE: 02/27/17 REPORT STATUS : Draft TRANSCRIBED BY: MODClif DATE: 02/27/17 DATE OF ADMISSION: 02/27/2017 CHIEF COMPLAINT: Weakness, fever, diarrhea for more than one week, getting progressively worse over the last few days. HISTORY OF PRESENT ILLNESS: This is a very pleasant 76 years old female. She is a patient of Dr. Davenport, her primary care provider, as well as Dr. Jose Michel, her oncologist. She does have a history of non-small cell carcinoma. She had chemo and radiation treatment under the care of Dr. Jose Michel, history of CLL, history of C diff with recurrent disease currently, history of hypothyroidism, and history of PE for which she is on anticoagulation, currently is on oral chemo, presenting today to [facility] after she has been advised by her oncologist, Dr. Jose Michel. It is important to note that on the , the patient has been diagnosed with C diff by her primary care provider, Dr. Davenport. She has been placed on oral vancomycin and since then, she is still experiencing intractable diarrhea with significant decreased p.o. intake. She has been taking Lomotil with her vancomycin, but she has not experienced any improvement. Since she has experienced recurrent fever which did not go away, she called Dr. Jose Michel today. She has been so weak that she was unable to walk and she was complaining of right midabdominal pain and some back pain that occurred a couple of days ago. She did not have any cough or sputum production. No increasing shortness of breath. No chest pain. No PND or orthopnea. Significant decreased p.o. intake with inability to eat. No nausea or vomiting, but ongoing diarrhea with no hematemesis or melena. No hematochezia. No other complaints. The patient has been evaluated in the emergency room and after initial evaluation, Hospitalist Service has been asked for admission, further evaluation, and treatment. PAST MEDICAL HISTORY: Significant for non-small cell lung cancer with prior history of chemo and radiation treatment, CLL, history of PE, history of prior C diff, history of hypothyroidism, degenerative joint disease, and osteoarthritis. PAST SURGICAL HISTORY: Includes abdominal hysterectomy and left hip replacement. SOCIAL HISTORY: She denies tobacco. Alcohol socially. No IV drugs. ALLERGIES: SHE DOES NOT HAVE ANY DRUG ALLERGIES. FAMILY HISTORY: Significant for CVA. MEDICATIONS: At home include Tylenol, Eliquis, Lomotil, Advil, vancomycin, Synthroid, and Gilotrif. REVIEW OF SYSTEMS: Fourteen-point review of system has been obtained and pertinent positives have been listed into the history of present illness. Otherwise, negative except those underlying above. OBJECTIVE: VITAL SIGNS: The patient's T-max 99.6, blood pressure 115/59, heart rate 90, History And Physical [address] [address] NAME: KENYA CARTER : 40 STATUS : ADM IN [facility]#: [id number] AGE: 76 ADM/REG DATE : 02/27/17 MR#: [id number] REPORT SERV DATE: 02/28/17 DICTATED BY: VA MIGUEL DATE: 02/27/17 REPORT STATUS : Draft TRANSCRIBED BY: MODClif DATE: 02/27/17 respiratory rate 18, saturating 95% on room air. GENERAL: She is a very pleasant, ill-appearing female, in no acute distress. She is alert and oriented x3 with dry mucous membranes. No erythema. HEENT: Shows pupils equal, round, and reactive to light. Extraocular movements intact. NECK: No JVD. No lymphadenopathy. No thyromegaly appreciated. CHEST: Eval shows bilateral air entry. Clear anteroposterior. No wheezes, crackles, or rhonchi appreciated. CARDIOVASCULAR: She has regular rate and rhythm. S1, S2 positive. No S3, no S4. No murmurs, rubs, or gallops appreciated. ABDOMEN: Soft, somewhat distended. Tender on the right middle quadrant. No guarding. No rebound. EXTREMITIES: No clubbing, cyanosis, or edema. NEUROLOGIC: She is alert and oriented x3. Nonfocal. She follows all her commands appropriately. LABORATORY DATA: Labs from today would include sodium 131, potassium 3, chloride 99, CO2 of 22, BUN 14, and creatinine 0.81, glucose is 88, total bilirubin is 0.7, alkaline phosphatase 130, ALT 29, AST 60. White count 1.1, hemoglobin 10.1, hematocrit 28.4, platelets are 103. Her UA has been negative. Her blood cultures are pending. Her stool cultures for 02/22/2017 showed C diff positive. ASSESSMENT: This is a very pleasant 76 years old female with: 1. Recurrent Clostridium difficile colitis. 2. Intractable diarrhea with significant dehydration and weakness secondary to above. 3. History of non-small cell lung cancer. 4. History of chronic lymphocytic leukemia, on oral chemo. 5. Hypothyroidism. 6. History of pulmonary embolus, on oral anticoagulation. 7. Hypokalemia. PLAN: 1. The patient is going to be admitted to Hospitalist Service. We are going to continue her oral vancomycin, start her on IV Flagyl as well. We are going to get a CAT scan of the abdomen and pelvis without contrast. Place her on clear liquid diet for right now. Provide supportive treatment. Reasonable pain, nausea control. Consult her oncologist, Dr. Jose Michel. Hold oral chemotherapy for right now. 2. Intractable diarrhea with dehydration secondary to above. Provide IV fluids. Replace her electrolytes. Check a magnesium level and advance diet as tolerated. 3. Hypokalemia. Replace her electrolytes. 4. Hypothyroidism. Continue her home medications. 5. History of PE. We are going to continue her home medications. We will provide reasonable pain, nausea control, GI and DVT prophylaxis with SCDs since the patient is already on Eliquis. Further workup and recommendation pending above. It is worthwhile to note that the patient is going to be followed up by Dr. Tristian Fuentes. That has been discussed extensively with the patient and the family. All the questions have been answered in full. History And Physical [address] [place]. [address] NAME: KENYA CARTER : 40 STATUS : ADM IN PAT#: [id number] AGE: 76 ADM/REG DATE : 02/27/17 MR#: [id number] REPORT SERV DATE: 02/28/17 DICTATED BY: VA MIGUEL DATE: 02/27/17 REPORT STATUS : Draft TRANSCRIBED BY: MODClif DATE: 02/27/17 CF/MODL Va Miguel M.D. / [id number] CC: MD Shaq Moore II, M.D.
--- NOTE | ~2017-02-27 | CN ---
Consultation Report [facility] [address] [place]. [address] NAME: KENYA CARTER : 40 STATUS : ADM IN [facility]#: [id number] AGE: 76 ADM/REG DATE : 02/27/17 MR#: [id number] REPORT SERV DATE: 03/22/17 DICTATED BY: EDWARDO DURHAM DATE: 03/22/17 REPORT STATUS : Draft TRANSCRIBED BY: MODClif DATE: 03/22/17 GI CONSULTATION DATE OF CONSULTATION: 03/22/2017 REASON FOR CONSULTATION: Evaluation and management of patient for PEG tube placement. HISTORY OF PRESENT ILLNESS: Ms. Carter is a 76-year-old female patient, who has been seen by Dr. Katiuska Heath, in the outpatient setting, who presented to [facility] on 02/27/2017 with a chief complaint of weakness, fever, diarrhea, progressive worsening in overall symptoms. She has a history of non-small cell lung carcinoma, treated by Dr. Jose Michel, still receiving chemo and radiation as well as history of CLL. She has recurrent C diff colitis and had been being treated with vancomycin and Lomotil; however, she did not experience much improvement, progressively got weaker, thus prompting her to come to the hospital for further evaluation. Her diarrhea at this point has resolved. She has been seen by Infectious Disease. Currently, she is on oral vancomycin and oral Valtrex. She continues to have a poor appetite and anorexia and is currently on TPN. Modified barium swallow study was completely normal, but secondary to her severe protein calorie malnutrition and anorexia, GI was consulted to see her for possibility of PEG tube placement. I have discussed with the patient as well as the patient's , who is currently present at the bedside of PEG tube placement. The risks, benefits, alternatives, and complications were detailed for them to include, but not limited to risk of bleeding, perforation, infection, reaction to medication, as well as cardiac and pulmonary side effects. They are agreeable to proceed. We will potentially plan on placing this tomorrow. With her history of recurrent C diff, we will plan on treating her preprocedurally with IV vancomycin to avoid other antibiotic exposure. PERTINENT PAST MEDICAL HISTORY: For non-small cell lung cancer, being treated by Dr. Jose Michel with chemo and radiation, recurrent C diff, CLL, hypothyroidism, PE currently on Lovenox, weight loss, anorexia, protein calorie malnutrition, degenerative joint disease, and osteoarthritis. PAST SURGICAL HISTORY: Abdominal hysterectomy and left hip replacement. FAMILY HISTORY: Noncontributory from a GI standpoint. SOCIAL HISTORY: She still lives independently with her . No alcohol, tobacco, or illicits. ALLERGIES: NO KNOWN ALLERGIES. HOME MEDICATIONS: Tylenol with codeine, Eliquis, Lomotil, Advil, Synthroid, Gilotrif, Vancocin. Consultation Report [facility] [address] [place]. [address] NAME: KENYA CARTER : 40 STATUS : ADM IN PAT#: [id number] AGE: 76 ADM/REG DATE : 02/27/17 MR#: [id number] REPORT SERV DATE: 03/22/17 DICTATED BY: EDWARDO DURHAM DATE: 03/22/17 REPORT STATUS : Draft TRANSCRIBED BY: JESUS DATE: 03/22/17 REVIEW OF SYSTEMS: A 10-point review of systems has been obtained with pertinent positives being addressed in the history of present illness. PERTINENT LABORATORY DATA: Sodium is 134, potassium 4.3, BUN is 23, creatinine 0.48. White count is 3.4, hemoglobin 8.9, hematocrit 26.7, platelet count of 198. INR last checked was 1.6. On her modified barium swallow, it just showed decreased epiglottic inversion, delay in swallow initiation with no evidence of aspiration. Chest x-ray done on showed stable medial left apical opacity likely representing a post radiation fibrosis. No current liver enzymes have been tested. Neutrophil count 2.52. PHYSICAL EXAMINATION: VITAL SIGNS: Temperature 99.4, pulse of 100, respirations 22, blood pressure is 115/56. NEURO: Reveals an alert, chronically ill-appearing, frail and cachectic female, resting in bed. GENERAL: She is cooperative. She opens her eyes to name. She is in no apparent distress. She is oriented x3. HEAD, EARS, EYES, NOSE, AND THROAT: Anicteric. Pupils are equal, round, reactive to light and accommodation. Normocephalic, atraumatic. Skin around her mouth is dry with a right lower lip lesion. NECK: No JVD. LUNGS: Decreased throughout. CARDIOVASCULAR SYSTEM: Regular rhythm, but tachycardic. ABDOMEN: Soft, nondistended, nontender with active bowel sounds. EXTREMITIES: No edema. Normal distal pulses. SKIN: Warm, dry, and intact. ASSESSMENT/PLAN: 1. Recurrent C diff, currently improved on her current regimen. 2. Fever. 3. Neutropenia. 4. History of lung cancer, non-small cell carcinoma, under current treatment with Dr. Jose Michel. 5. Severe protein calorie malnutrition, anorexia. 6. Stomatitis. 7. Generalized debility. PLAN: 1. PEG tube placement tomorrow. 2. We will give one dose of IV vancomycin prior to tube placement to avoid other antibiotic exposures. 3. We will have Nutrition see her for tube feeding recommendations. Consultation Report [address] [place]. [address] NAME: KENYA CARTER : 40 STATUS : ADM IN PAT#: [id number] AGE: 76 ADM/REG DATE : 02/27/17 MR#: [id number] REPORT SERV DATE: 03/22/17 DICTATED BY: EDWARDO DURHAM DATE: 03/22/17 REPORT STATUS : Draft TRANSCRIBED BY: JESUS DATE: 03/22/17 GABRIELA/JESUS NA Tejada / [id number] CC: Temitope Tinoco M.D.
--- NOTE | ~2017-02-27 | DS ---
Discharge Summary [facility] [address] [place]. [address] NAME: KENYA CARTER : 40 STATUS : DIS IN PAT#: [id number] AGE: 76 ADM/REG DATE : 02/27/17 MR#: [id number] REPORT SERV DATE: 04/13/17 DICTATED BY: BHARAT BRUCE II DATE: 04/12/17 REPORT STATUS : Draft TRANSCRIBED BY: MODL DATE: 04/12/17 ADMISSION DATE: 02/27/2017 DISCHARGE DATE: 04/12/2017 DISCHARGE DIAGNOSES: 1. Recurrent Clostridium difficile colitis. 2. Acute infectious mononucleosis. 3. Severe malnutrition. 4. Recurrent sepsis and fevers likely secondary to acute infectious mononucleosis. 5. Severe deconditioning and debility. 6. Anorexia, status post PEG, tolerating tube feeds. 7. Dysphagia which has resolved. 8. Anemia of chronic disease. 9. History of pulmonary embolism on Lovenox. 10.Metabolic encephalopathy, resolved. 11.Stomatitis with oral ulcers, likely secondary to mono, now resolved. 12.History of lung cancer with oral chemotherapy, Gilotrif on hold. 13.History of CLL. 14.Splenomegaly. CONSULTS: Dr. Jeffers and Dr. Hoover with Infectious Disease. Dr. Kai Vásquez with Surgery. Dr. Fung with Ortho. Dr. Valenzuela with GI. PROCEDURES: PEG tube placement. BRIEF HISTORY OF PRESENT ILLNESS: The patient is a 76-year-old female with the above history, who presented to [facility] due to weakness, fever, diarrhea, and recurrent C. For detailed history and physical examination, please see Dr. Va Rose's note from 02/27/2017. HOSPITAL COURSE: For details of the patient's prolonged hospitalization, please see the multiple interim summaries during her stay. Of note, the patient's Mary-Argueta virus serology came back positive and the PCR was also positive for greater than a million copies, likely indicating an acute infectious mononucleosis which would certainly explain her constellation of symptoms including recurrent fevers, severe anorexia, nausea, elevated liver enzymes, and oral ulcerations. Her splenomegaly has been present due to CLL, but did measure slightly larger during this admission. Her repeat C. diff has been negative, but she will continue course of oral vancomycin for another two weeks. Her other IV antibiotics have been discontinued at this point in time. She had finished a 10-day course of daptomycin and Zosyn. She had been on various antibiotic regimens during hospitalization due to recurrent fevers, but blood cultures and urine cultures, all returned negative, so the most likely culprit is the EBV. At this point in time, the patient's main complication is her severe malnutrition as she does still have poor appetite and poor intake, but is tolerating her tube feeds at goal. She is very weak and is working well with physical therapy and will be discharged to [facility] for further rehab. Otherwise, her liver enzymes have trended down. She will continue Eliquis for history of PE and follow up with Dr. Discharge Summary [address] [place]. [address] NAME: KENYA CARTER : 40 STATUS : DIS IN PAT#: [id number] AGE: 76 ADM/REG DATE : 02/27/17 MR#: [id number] REPORT SERV DATE: 04/13/17 DICTATED BY: BHARAT BRUCE II DATE: 04/12/17 REPORT STATUS : Draft TRANSCRIBED BY: JESUS DATE: 04/12/17 Anand in two weeks in clinic. DISCHARGE MEDICATIONS: 1. Eliquis 2.5 mg p.o. b.i.d. 2. Iraida cream to buttocks b.i.d. 3. Marinol 5 mg p.o. b.i.d. 4. Synthroid 88 mcg p.o. daily. 5. Multivitamin with ferrous gluconate 15 mL p.o. daily. 6. Vancomycin 125 mg p.o. liquid q.6 hours x14 more days. 7. Prednisone 10 mg p.o. daily x4 more days. 8. Tylenol 650 mg p.o. q.4 hours p.r.n. fever or pain. 9. Zofran 4 mg p.o. sublingual q.4 hours p.r.n. nausea. 10.Lomotil 2.5 mg p.o. p.r.n. loose stools. 11.Percocet 5/325 mg p.o. q.6 hours p.r.n. pain. DISCHARGE INSTRUCTIONS: The patient will follow up with Dr. Jose Michel in two weeks. DICTATED BY: MD CONSUELO Moore II/JESUS Bharat Bruce II, MD / [id number] CC: MD Shaq Moore II, M.D.
--- NOTE | ~2017-02-27 | IDS ---
Interim Discharge Summary [facility] [address] [place]. [address] NAME: KENYA CARTER : 40 STATUS : ADM IN PAT#: [id number] AGE: 76 ADM/REG DATE : 02/27/17 MR#: [id number] REPORT SERV DATE: 03/12/17 DICTATED BY: LETTY THOMAS DATE: 03/12/17 REPORT STATUS : Draft TRANSCRIBED BY: MODClif DATE: 03/12/17 ADMISSION DATE: 02/27/2017 DISCHARGE DATE: Interim summary covers 03/06/2017 through 03/12/2017. INTERIM DIAGNOSES: 1. Recurrent Clostridium difficile colitis with neutropenic colitis. 2. Anasarca. 3. Hypotension. 4. Abdominal pain. 5. Pancytopenia. 6. History of non-small cell lung cancer. 7. History of follicular lymphoma, not requiring treatment. 8. History of pulmonary embolism. 9. Severe malnutrition. 10.Severe debility. 11.Encephalopathy. HISTORY OF PRESENT ILLNESS: Please see full H and P for details regarding initial presentation from Dr. Rose's note. HOSPITAL COURSE: Please see interim summary by Dr. Tristian Fuentes from 03/05/2017 regarding prior hospitalization course. 1. Neutropenic/C. difficile colitis with sepsis. The patient is on broad-spectrum antibiotics. She was on G-CSF for her neutropenia. Her white blood cell count has improved. Diarrhea has also improved. Surgery has signed off. At this point, we are largely providing pain control on broad-spectrum antibiotics with aztreonam, micafungin p.o., and IV vancomycin. 2. Anasarca with severe malnutrition. The patient is getting TPN. We were attempting IV diuresis. 3. Hypotension. The patient was started on midodrine to allow diuresis. This has hold parameters. Her blood pressure has improved over the last several days. This can be discontinued as appropriate. 4. Abdominal pain. This is a balancing act between her mental status which has declined over the past few days to provide pain control. She largely moans with any palpation or movement. This has been discussed with family. If the patient's clinical course does not declare itself in the next couple of days and she is not improving, may recommend palliative care consultation. 5. Acute encephalopathy. The patient's mental status has declined over the past couple of days. We have discussed with family possibly trying to space out pain medication to see if this is a factor. We will also check an ammonia level. I worry this is a bad prognostic sign. I have this to the family. If the patient's does not make a turn for the better in the next couple days, recommend palliative care versus hospice consultation. 6. Pancytopenia/non-small cell lung cancer/follicular lymphoma. Oncology is following. Interim Discharge Summary [facility] [id number] [place]. [address] NAME: KENYA CARTER : 40 STATUS : ADM IN PAT#: [id number] AGE: 76 ADM/REG DATE : 02/27/17 MR#: [id number] REPORT SERV DATE: 03/12/17 DICTATED BY: LETTY THOMAS DATE: 03/12/17 REPORT STATUS : Draft TRANSCRIBED BY: MODL DATE: 03/12/17 Her white blood cell count has improved. Her other counts are largely stable. She has not required any transfusions. 7. History of PE. She has been on prophylactic dose Lovenox over the past several days without any issues. No planned surgeries. Surgery is no longer following. We will advance this to therapeutic Lovenox and consider changing this to Eliquis once her mental status has improved, and she is reliably swallowing pills. Of note, she has had some difficulty with residual pill products in her mouth for the past couple of days. Thus, I do not feel safe to resume Eliquis at this time. 8. Severe malnutrition. Pharmacy is managing TPN. 9. Severe debility. I have discussed with family, Dr. Jeffers, and Dr. Michel regarding the patient's poor prognosis. She has been made DNR/DNI this admission by Dr. Michel. At this point, if she does not turn around in the next few days, recommend palliative care versus hospice consultation. If she does improve, likely will need SNF at discharge. Family is aware of this and I am anticipating this illness will declare itself one way or another in the next few days. Dr. Tristian Fuentes to assume care of the patient on 03/13/2017. DNK/MODL Letty Thomas MD / [id number] CC: Letty Thomas MD
[~2017-02-27 15:56] MED LIST: ESTRADERM0.1 MG TD; GLUCCHONDR PO; KRILL OIL PO; MULTIPLE VIT PO; PROAIR HFA INH; SPIRIVA INH; SYN88 PO
[2017-02-27 18:30] LABS: BASOPHILS 0 %; EOSINOPHILS 0 %; ER CBC TAT 0 Hrs 07 Mins; HEMATOCRIT 28.4 % (36.0-48.0); HEMOGLOBIN 10.1 g/dL (12.0-16.0); IMMATURE GRANULOCYTES 11.3 %; IMMATURE GRANULOCYTES ABSOLUTE 0.12 10/3/uL (0.0-0.11); LYMPHOCYTES ABSOLUTE 0.71 10/3/uL (0.67-4.30); MEAN CORPUS HGB CONC 35.6 g/dL (32.0-36.0); MEAN CORPUSCULAR HEMOGLOB 34.6 pg (26.0-34.0); MEAN CORPUSCULAR VOLUME 97.3 fL (80-100); MEAN PLATELET VOLUME 9.3 fL (9.2-13.0); MONOCYTES 2.8 %; MONOCYTES ABSOLUTE 0.03 10/3/uL (0.21-1.20); NEUTROPHILS 18.9 %; PLATELET COUNT 103 10/3/uL (150-400); RBC DISTRIBUTION WIDTH 15.3 % (12.0-16.0); RED CELL COUNT 2.92 10/6/uL (4.0-5.6); WHITE BLOOD CELLS 1.1 10/3/uL (4.5-10.5)
[2017-02-27 18:31] LABS: MANUAL DIFF NO %
[2017-02-27 18:46] LABS: A/G RATIO 0.8 (0.7-1.9); ALKALINE PHOSPHATASE 130 U/L (45-117); BUN (BLOOD UREA NITROGEN) 14 MG/DL (6-23); CALCIUM, SERUM 7.4 MG/DL (8.5-10.4); CHLORIDE, SERUM 99 MMOL/L (96-112); CO2 (CARBON DIOXIDE) 22 MMOL/L (24-34); CREATININE 0.81 MG/DL (0.55-1.02); GFR AFRICAN AMERICAN 82 ML/MIN (>=60); GFR NON AFRICAN AMERICAN 71 ML/MIN (>=60); GLOBULIN 2.6 G/DL (2.5-4.1); GLUCOSE, SERUM 88 MG/DL (60-99); SGOT(AST) 60 U/L (5-40); SGPT(ALT) 29 U/L (5-65); SODIUM, SERUM 131 MMOL/L (135-148); TOTAL BILIRUBIN 0.7 MG/DL (0-1.2); TOTAL PROTEIN 4.6 G/DL (6.0-8.5)
[2017-02-27 18:56] LABS: BAND NEUTROPHILS 12 %; ER DIFF TAT 0 Hrs 33 Mins; LYMPHOCYTES 64 %; OVALOCYTES 1+ (3-10/OIF) (0-2/OIF); PLATELET ESTIMATE DEC (ADEQUATE); SEGMENTED NEUTROPHIL (0) 24 %; TOTAL NUCLEATED CELLS 50
[2017-02-27 20:06] LABS: WBC (NOT ORDERED) (RFLEX) 0 (0-5)
[2017-02-27 20:12] LABS: ASCORBIC ACID (UR NOT ORDER) NEG (NEG); BILIRUBIN, URINE NEGATIVE (NEG); ER URINALYSIS TAT 0 Hrs 08 Mins; KETONE, URINE 20 MG/DL (NEG); LEUKOCYTE ESTERASE(NOT OR NEG (NEG); NITRITE (URINE) NEG (NEG)
[2017-02-27] MEDS ORDERED: TARCEVA100 PO (20:12)
[2017-02-27] MEDS ORDERED: VANCOCIN HCL125 MG PO (20:14)
[2017-02-27] MEDS ORDERED: ELIQUIS 2.5 MG2.5 MG PO (20:14)
[2017-02-27] MEDS ORDERED: SYN075 PO (20:15)
[2017-02-27] MEDS ORDERED: SPIRIVA INH (20:15)
[2017-02-27] MEDS ORDERED: LOM PO (20:17)
[2017-02-27] MEDS ORDERED: ADVIL PO (20:26)
[2017-02-27] MEDS ORDERED: T3 PO (20:26)
[2017-02-27 21:33] LABS: PATH REVIEW YES
[2017-02-28 01:17] LABS: PROCALCITONIN 0.75 ng/mL (<0.5)
[2017-02-28 01:37] LABS: FREE T4 1.31 NG/DL (0.76-1.46); PHOSPHORUS, SERUM 2.5 MG/DL (2.5-4.5); ULTRASENSITIVE TSH 0.3 MCIU/ML (0.358-3.740)
[2017-02-28 08:33] LABS: PATH REVIEW SEE PATHOLOGY REPORT
[2017-02-28 08:58] LABS: HEMATOCRIT 27.6 % (36.0-48.0); HEMOGLOBIN 9.9 g/dL (12.0-16.0); MANUAL DIFF YES %; MEAN CORPUS HGB CONC 35.9 g/dL (32.0-36.0); MEAN CORPUSCULAR HEMOGLOB 34.7 pg (26.0-34.0); MEAN CORPUSCULAR VOLUME 96.8 fL (80-100); MEAN PLATELET VOLUME 9.1 fL (9.2-13.0); PLATELET COUNT 96 10/3/uL (150-400); RBC DISTRIBUTION WIDTH 15.7 % (12.0-16.0); RED CELL COUNT 2.85 10/6/uL (4.0-5.6); WHITE BLOOD CELLS 0.8 10/3/uL (4.5-10.5)
[2017-02-28 09:05] LABS: INTERNATIONAL NORMAL RATI 1.6 UNITS (-)
[2017-02-28 09:06] LABS: PARTIAL THROMBO TIME 36.7 SEC (22.5-37.2); PROTIME (NOT ORD) 19.2 SEC (12.0-14.5)
[2017-02-28 09:14] LABS: A/G RATIO 0.7 (0.7-1.9); ALKALINE PHOSPHATASE 110 U/L (45-117); BUN (BLOOD UREA NITROGEN) 13 MG/DL (6-23); CALCIUM, SERUM 7.6 MG/DL (8.5-10.4); CHLORIDE, SERUM 101 MMOL/L (96-112); CO2 (CARBON DIOXIDE) 19 MMOL/L (24-34); GFR AFRICAN AMERICAN 98 ML/MIN (>=60); GFR NON AFRICAN AMERICAN 84 ML/MIN (>=60); GLOBULIN 2.7 G/DL (2.5-4.1); GLUCOSE, SERUM 96 MG/DL (60-99); POTASSIUM, SERUM 3.7 MMOL/L (3.5-5.3); SGOT(AST) 55 U/L (5-40); SGPT(ALT) 30 U/L (5-65); SODIUM, SERUM 131 MMOL/L (135-148); TOTAL BILIRUBIN 0.4 MG/DL (0-1.2); TOTAL PROTEIN 4.7 G/DL (6.0-8.5)
[2017-02-28 09:36] LABS: LYMPHOCYTES 50 %; MONOCYTES 2 %; MONOCYTES ABSOLUTE (CALC) 0.02 10/3/uL (0.21-1.20); NEUTROPHILS ABSOLUTE (CALC) 0.38 10/3/uL (2.02-8.40); PLATELET ESTIMATE DEC (ADEQUATE); POLYCHROMASIA 1+ (2-5/OIF) (0-1/OIF); SEGMENTED NEUTROPHIL (0) 48 %; TOTAL NUCLEATED CELLS 50
[2017-03-01 06:11] LABS: HEMOGLOBIN 10.6 g/dL (12.0-16.0); MEAN CORPUS HGB CONC 34.4 g/dL (32.0-36.0); MEAN CORPUSCULAR HEMOGLOB 34.4 pg (26.0-34.0); MEAN PLATELET VOLUME 9.5 fL (9.2-13.0); PLATELET COUNT 117 10/3/uL (150-400); RBC DISTRIBUTION WIDTH 16.2 % (12.0-16.0); RED CELL COUNT 3.08 10/6/uL (4.0-5.6)
[2017-03-01 06:14] LABS: HEMATOCRIT 30.8 % (36.0-48.0); WHITE BLOOD CELLS 1.7 10/3/uL (4.5-10.5)
[2017-03-01 06:16] LABS: MANUAL DIFF YES %
[2017-03-01 06:25] LABS: A/G RATIO 0.7 (0.7-1.9); ALBUMIN 2.2 G/DL (3.5-5.0); ALKALINE PHOSPHATASE 117 U/L (45-117); BUN (BLOOD UREA NITROGEN) 14 MG/DL (6-23); CHLORIDE, SERUM 105 MMOL/L (96-112); CO2 (CARBON DIOXIDE) 18 MMOL/L (24-34); CREATININE 0.96 MG/DL (0.55-1.02); GFR AFRICAN AMERICAN 67 ML/MIN (>=60); GFR NON AFRICAN AMERICAN 57 ML/MIN (>=60); GLOBULIN 3.1 G/DL (2.5-4.1); GLUCOSE, SERUM 80 MG/DL (60-99); POTASSIUM, SERUM 3.9 MMOL/L (3.5-5.3); SGOT(AST) 55 U/L (5-40); SGPT(ALT) 32 U/L (5-65); SODIUM, SERUM 133 MMOL/L (135-148); TOTAL BILIRUBIN 0.5 MG/DL (0-1.2); TOTAL PROTEIN 5.3 G/DL (6.0-8.5)
[2017-03-01 06:58] LABS: BAND NEUTROPHILS 8 %; EOSINOPHILS 4 %; EOSINOPHILS ABSOLUTE (CALC) 0.07 10/3/uL (0.0-0.53); LYMPHOCYTES 74 %; LYMPHOCYTES ABSOLUTE (CALC) 1.26 10/3/uL (0.67-4.30); MACROCYTES 1+ (5-10/OIF) (0-5/OIF); MONOCYTES 2 %; MONOCYTES ABSOLUTE (CALC) 0.03 10/3/uL (0.21-1.20); NEUTROPHILS ABSOLUTE (CALC) 0.34 10/3/uL (2.02-8.40); PLATELET ESTIMATE SLT DEC (ADEQUATE); SEGMENTED NEUTROPHIL (0) 12 %; TOTAL NUCLEATED CELLS 50
[2017-03-01 06:59] LABS: OVALOCYTES 1+ (3-10/OIF) (0-2/OIF); POIKILOCYTOSIS 1+ (5-10/OIF) (0-5/OIF); POLYCHROMASIA 1+ (2-5/OIF) (0-1/OIF)
[2017-03-02 06:42] LABS: HEMOGLOBIN 9.3 g/dL (12.0-16.0); MEAN CORPUSCULAR HEMOGLOB 34.4 pg (26.0-34.0); MEAN CORPUSCULAR VOLUME 98.5 fL (80-100); MEAN PLATELET VOLUME 9.4 fL (9.2-13.0); PLATELET COUNT 96 10/3/uL (150-400); RBC DISTRIBUTION WIDTH 16.7 % (12.0-16.0)
[2017-03-02 06:46] LABS: HEMATOCRIT 26.6 % (36.0-48.0); MANUAL DIFF YES %; WHITE BLOOD CELLS 0.7 10/3/uL (4.5-10.5)
[2017-03-02 06:53] LABS: BUN (BLOOD UREA NITROGEN) 11 MG/DL (6-23); CALCIUM, SERUM 7.8 MG/DL (8.5-10.4); CHLORIDE, SERUM 106 MMOL/L (96-112); CO2 (CARBON DIOXIDE) 17 MMOL/L (24-34); CREATININE 0.75 MG/DL (0.55-1.02); GFR AFRICAN AMERICAN 90 ML/MIN (>=60); GFR NON AFRICAN AMERICAN 77 ML/MIN (>=60); POTASSIUM, SERUM 3.4 MMOL/L (3.5-5.3); SODIUM, SERUM 136 MMOL/L (135-148)
[2017-03-02 06:54] LABS: GLUCOSE, SERUM 127 MG/DL (60-99)
[2017-03-02 07:05] LABS: BAND NEUTROPHILS 3 %; BASOPHILS 1 %; BASOPHILS ABSOLUTE (CALC) 0.01 10/3/uL (0.0-0.16); BURR CELLS 1+ (3-10/OIF) (0-2/OIF); LYMPHOCYTES 58 %; LYMPHOCYTES ABSOLUTE (CALC) 0.41 10/3/uL (0.67-4.30); MONOCYTES 3 %; MONOCYTES ABSOLUTE (CALC) 0.02 10/3/uL (0.21-1.20); NEUTROPHILS ABSOLUTE (CALC) 0.27 10/3/uL (2.02-8.40); PLATELET ESTIMATE DEC (ADEQUATE); SCHISTOCYTES OCC (0-2/OIF); SEGMENTED NEUTROPHIL (0) 35 %; TEARDROP SHAPED RBCS OCC (0-2/OIF); TOTAL NUCLEATED CELLS 100
[2017-03-03 07:11] LABS: A/G RATIO 0.6 (0.7-1.9); BUN (BLOOD UREA NITROGEN) 10 MG/DL (6-23); CHLORIDE, SERUM 107 MMOL/L (96-112); CO2 (CARBON DIOXIDE) 19 MMOL/L (24-34); CREATININE 0.76 MG/DL (0.55-1.02); GFR AFRICAN AMERICAN 88 ML/MIN (>=60); GFR NON AFRICAN AMERICAN 76 ML/MIN (>=60); GLOBULIN 3.2 G/DL (2.5-4.1); SGOT(AST) 69 U/L (5-40); SGPT(ALT) 22 U/L (5-65); SODIUM, SERUM 135 MMOL/L (135-148); TOTAL BILIRUBIN 0.7 MG/DL (0-1.2); TOTAL PROTEIN 5.2 G/DL (6.0-8.5)
[2017-03-03 07:12] LABS: ALKALINE PHOSPHATASE 135 U/L (45-117); CALCIUM, SERUM 8.8 MG/DL (8.5-10.4); GLUCOSE, SERUM 84 MG/DL (60-99); POTASSIUM, SERUM 4.6 MMOL/L (3.5-5.3)
[2017-03-03 07:33] LABS: HEMOGLOBIN 11.1 g/dL (12.0-16.0); MEAN CORPUS HGB CONC 34.4 g/dL (32.0-36.0); MEAN CORPUSCULAR HEMOGLOB 33.8 pg (26.0-34.0); MEAN CORPUSCULAR VOLUME 98.5 fL (80-100); MEAN PLATELET VOLUME 10.4 fL (9.2-13.0); PLATELET COUNT 102 10/3/uL (150-400); RBC DISTRIBUTION WIDTH 16.8 % (12.0-16.0)
[2017-03-03 07:38] LABS: HEMATOCRIT 32.3 % (36.0-48.0); MANUAL DIFF YES %; RED CELL COUNT 3.28 10/6/uL (4.0-5.6); WHITE BLOOD CELLS 1.4 10/3/uL (4.5-10.5)
[2017-03-03 08:33] LABS: SEGMENTED NEUTROPHIL (0) 26 %; TOTAL NUCLEATED CELLS 100
[2017-03-03 08:34] LABS: BAND NEUTROPHILS 10 %; LYMPHOCYTES 58 %; LYMPHOCYTES ABSOLUTE (CALC) 0.81 10/3/uL (0.67-4.30); MONOCYTES 6 %; MONOCYTES ABSOLUTE (CALC) 0.08 10/3/uL (0.21-1.20); PLATELET ESTIMATE SLT DEC (ADEQUATE)
[2017-03-03 08:35] LABS: RBC MORPHOLOGY NORM (NORMAL); TOXIC GRANULATION 1+
[2017-03-04 01:58] LABS: HEMOGLOBIN 9.4 g/dL (12.0-16.0); MEAN CORPUS HGB CONC 33.8 g/dL (32.0-36.0); MEAN CORPUSCULAR HEMOGLOB 33.5 pg (26.0-34.0); MEAN CORPUSCULAR VOLUME 98.9 fL (80-100); MEAN PLATELET VOLUME 9.2 fL (9.2-13.0); PLATELET COUNT 103 10/3/uL (150-400); RBC DISTRIBUTION WIDTH 17.2 % (12.0-16.0); RED CELL COUNT 2.81 10/6/uL (4.0-5.6)
[2017-03-04 01:59] LABS: HEMATOCRIT 27.8 % (36.0-48.0); MANUAL DIFF YES %; WHITE BLOOD CELLS 0.9 10/3/uL (4.5-10.5)
[2017-03-04 02:10] LABS: BUN (BLOOD UREA NITROGEN) 11 MG/DL (6-23); CHLORIDE, SERUM 109 MMOL/L (96-112); CO2 (CARBON DIOXIDE) 21 MMOL/L (24-34); CREATININE 0.74 MG/DL (0.55-1.02); GFR AFRICAN AMERICAN 91 ML/MIN (>=60); GFR NON AFRICAN AMERICAN 79 ML/MIN (>=60); POTASSIUM, SERUM 4.2 MMOL/L (3.5-5.3); SODIUM, SERUM 137 MMOL/L (135-148)
[2017-03-04 02:11] LABS: GLUCOSE, SERUM 105 MG/DL (60-99)
[2017-03-04 03:04] LABS: ANISOCYTOSIS 1+ (5-10/OIF) (0-5/OIF); BAND NEUTROPHILS 6 %; LYMPHOCYTES 60 %; LYMPHOCYTES ABSOLUTE (CALC) 0.54 10/3/uL (0.67-4.30); NEUTROPHILS ABSOLUTE (CALC) 0.36 10/3/uL (2.02-8.40); PLATELET ESTIMATE SLT DEC (ADEQUATE); SEGMENTED NEUTROPHIL (0) 34 %; TOTAL NUCLEATED CELLS 100
[2017-03-04 03:05] LABS: RBC MORPHOLOGY NORM (NORMAL)
[2017-03-04 18:00] LABS: HEMOGLOBIN 10.8 g/dL (12.0-16.0); MEAN CORPUS HGB CONC 33.5 g/dL (32.0-36.0); MEAN CORPUSCULAR HEMOGLOB 33.9 pg (26.0-34.0); MEAN CORPUSCULAR VOLUME 100.9 fL (80-100); PLATELET COUNT 100 10/3/uL (150-400); RBC DISTRIBUTION WIDTH 17.5 % (12.0-16.0); RED CELL COUNT 3.19 10/6/uL (4.0-5.6)
[2017-03-04 18:06] LABS: HEMATOCRIT 32.2 % (36.0-48.0); WHITE BLOOD CELLS 1.7 10/3/uL (4.5-10.5)
[2017-03-04 18:08] LABS: MANUAL DIFF YES %
[2017-03-04 18:12] LABS: BUN (BLOOD UREA NITROGEN) 14 MG/DL (6-23); CALCIUM, SERUM 7.8 MG/DL (8.5-10.4); CHLORIDE, SERUM 109 MMOL/L (96-112); CO2 (CARBON DIOXIDE) 20 MMOL/L (24-34); DIRECT BILIRUBIN 0.2 MG/DL (0.0-0.4); GFR AFRICAN AMERICAN 98 ML/MIN (>=60); GFR NON AFRICAN AMERICAN 84 ML/MIN (>=60); GLUCOSE, SERUM 121 MG/DL (60-99); INDIRECT BILIRUBIN(NOT ORDER) 0.3 MG/DL (0.1-0.9); POTASSIUM, SERUM 4.5 MMOL/L (3.5-5.3); SODIUM, SERUM 139 MMOL/L (135-148); TOTAL BILIRUBIN 0.5 MG/DL (0-1.2)
[2017-03-04 18:47] LABS: ANISOCYTOSIS 1+ (5-10/OIF) (0-5/OIF); BAND NEUTROPHILS 9 %; LYMPHOCYTES 46 %; LYMPHOCYTES ABSOLUTE (CALC) 0.78 10/3/uL (0.67-4.30); MACROCYTES 1+ (5-10/OIF) (0-5/OIF); MONOCYTES 3 %; MONOCYTES ABSOLUTE (CALC) 0.05 10/3/uL (0.21-1.20); NEUTROPHILS ABSOLUTE (CALC) 0.87 10/3/uL (2.02-8.40); SEGMENTED NEUTROPHIL (0) 42 %; TOTAL NUCLEATED CELLS 100
[2017-03-04 18:48] LABS: GIANT PLATELET FEW; PLATELET ESTIMATE DEC (ADEQUATE)
[2017-03-04 18:50] LABS: TOXIC GRANULATION SLT
[2017-03-05 04:14] LABS: MEAN CORPUSCULAR HEMOGLOB 33.7 pg (26.0-34.0); MEAN CORPUSCULAR VOLUME 99.2 fL (80-100); MEAN PLATELET VOLUME 9.6 fL (9.2-13.0); PLATELET COUNT 95 10/3/uL (150-400); RBC DISTRIBUTION WIDTH 17.4 % (12.0-16.0)
[2017-03-05 04:17] LABS: HEMATOCRIT 24.1 % (36.0-48.0); HEMOGLOBIN 8.2 g/dL (12.0-16.0); MANUAL DIFF YES %; RED CELL COUNT 2.43 10/6/uL (4.0-5.6); WHITE BLOOD CELLS 1.3 10/3/uL (4.5-10.5)
[2017-03-05 04:48] LABS: BUN (BLOOD UREA NITROGEN) 14 MG/DL (6-23); CALCIUM, SERUM 7.2 MG/DL (8.5-10.4); CHLORIDE, SERUM 111 MMOL/L (96-112); CO2 (CARBON DIOXIDE) 17 MMOL/L (24-34); CREATININE 0.64 MG/DL (0.55-1.02); GFR AFRICAN AMERICAN 100 ML/MIN (>=60); GFR NON AFRICAN AMERICAN 87 ML/MIN (>=60); GLUCOSE, SERUM 103 MG/DL (60-99); POTASSIUM, SERUM 4.2 MMOL/L (3.5-5.3); SODIUM, SERUM 139 MMOL/L (135-148)
[2017-03-05 04:52] LABS: ANISOCYTOSIS 1+ (5-10/OIF) (0-5/OIF); BAND NEUTROPHILS 4 %; LYMPHOCYTES 44 %; LYMPHOCYTES ABSOLUTE (CALC) 0.57 10/3/uL (0.67-4.30); METAMYELOCYTES 4 %; MONOCYTES 4 %; MONOCYTES ABSOLUTE (CALC) 0.05 10/3/uL (0.21-1.20); MYELOCYTES 4 %; NEUTROPHILS ABSOLUTE (CALC) 0.57 10/3/uL (2.02-8.40); PLATELET ESTIMATE DEC (ADEQUATE); RBC MORPHOLOGY ABN (NORMAL); SEGMENTED NEUTROPHIL (0) 40 %; TOTAL NUCLEATED CELLS 25
[2017-03-05 10:27] LABS: PHOSPHORUS, SERUM 1.7 MG/DL (2.5-4.5); PREALBUMIN 4.2 MG/DL (17.0-43.0); TRIGLYCERIDE 73 MG/DL (< 150)
[2017-03-06 04:29] LABS: HEMATOCRIT 32.2 % (36.0-48.0); HEMOGLOBIN 10.6 g/dL (12.0-16.0); MEAN CORPUS HGB CONC 32.9 g/dL (32.0-36.0); MEAN CORPUSCULAR VOLUME 103.2 fL (80-100); MEAN PLATELET VOLUME 9.4 fL (9.2-13.0); PLATELET COUNT 112 10/3/uL (150-400); RBC DISTRIBUTION WIDTH 17.9 % (12.0-16.0); RED CELL COUNT 3.12 10/6/uL (4.0-5.6); WHITE BLOOD CELLS 2.4 10/3/uL (4.5-10.5)
[2017-03-06 04:30] LABS: MANUAL DIFF YES %
[2017-03-06 04:57] LABS: A/G RATIO 0.6 (0.7-1.9); ALBUMIN 1.9 G/DL (3.5-5.0); ALKALINE PHOSPHATASE 141 U/L (45-117); BUN (BLOOD UREA NITROGEN) 15 MG/DL (6-23); CHLORIDE, SERUM 111 MMOL/L (96-112); CO2 (CARBON DIOXIDE) 17 MMOL/L (24-34); CREATININE 0.67 MG/DL (0.55-1.02); GFR AFRICAN AMERICAN 99 ML/MIN (>=60); GFR NON AFRICAN AMERICAN 85 ML/MIN (>=60); GLUCOSE, SERUM 108 MG/DL (60-99); PHOSPHORUS, SERUM 1.5 MG/DL (2.5-4.5); POTASSIUM, SERUM 4.3 MMOL/L (3.5-5.3); SGOT(AST) 67 U/L (5-40); SGPT(ALT) 20 U/L (5-65); SODIUM, SERUM 137 MMOL/L (135-148); TOTAL BILIRUBIN 0.6 MG/DL (0-1.2); TOTAL PROTEIN 4.9 G/DL (6.0-8.5)
[2017-03-06 05:09] LABS: ANISOCYTOSIS 1+ (5-10/OIF) (0-5/OIF); BAND NEUTROPHILS 7 %; BURR CELLS 1+ (3-10/OIF) (0-2/OIF); LYMPHOCYTES 36 %; LYMPHOCYTES ABSOLUTE (CALC) 0.86 10/3/uL (0.67-4.30); MACROCYTES 1+ (5-10/OIF) (0-5/OIF); MONOCYTES 1 %; MONOCYTES ABSOLUTE (CALC) 0.02 10/3/uL (0.21-1.20); NEUTROPHILS ABSOLUTE (CALC) 1.51 10/3/uL (2.02-8.40); PLATELET ESTIMATE SLT DEC (ADEQUATE); SEGMENTED NEUTROPHIL (0) 56 %; TOTAL NUCLEATED CELLS 100
[2017-03-07 03:54] LABS: MEAN CORPUS HGB CONC 33.5 g/dL (32.0-36.0); MEAN CORPUSCULAR HEMOGLOB 33.5 pg (26.0-34.0); MEAN PLATELET VOLUME 9.7 fL (9.2-13.0); RBC DISTRIBUTION WIDTH 17.4 % (12.0-16.0)
[2017-03-07 03:56] LABS: HEMATOCRIT 24.2 % (36.0-48.0); HEMOGLOBIN 8.1 g/dL (12.0-16.0); MANUAL DIFF YES %; PLATELET COUNT 75 10/3/uL (150-400); RED CELL COUNT 2.42 10/6/uL (4.0-5.6); WHITE BLOOD CELLS 1.3 10/3/uL (4.5-10.5)
[2017-03-07 04:14] LABS: CALCIUM, SERUM 7.6 MG/DL (8.5-10.4); CHLORIDE, SERUM 111 MMOL/L (96-112); GFR AFRICAN AMERICAN 103 ML/MIN (>=60); GFR NON AFRICAN AMERICAN 89 ML/MIN (>=60); GLUCOSE, SERUM 113 MG/DL (60-99); PHOSPHORUS, SERUM 1.7 MG/DL (2.5-4.5); POTASSIUM, SERUM 3.8 MMOL/L (3.5-5.3); SODIUM, SERUM 142 MMOL/L (135-148)
[2017-03-07 04:17] LABS: BUN (BLOOD UREA NITROGEN) 21 MG/DL (6-23); CO2 (CARBON DIOXIDE) 22 MMOL/L (24-34)
[2017-03-07 04:37] LABS: ANISOCYTOSIS 1+ (5-10/OIF) (0-5/OIF); BAND NEUTROPHILS 5 %; IMMATURE GRANS ABSOLUTE (CALC) 0.01 10/3/uL (0.0-0.11); LYMPHOCYTES 44 %; LYMPHOCYTES ABSOLUTE (CALC) 0.57 10/3/uL (0.67-4.30); METAMYELOCYTES 1 %; MONOCYTES 1 %; MONOCYTES ABSOLUTE (CALC) 0.01 10/3/uL (0.21-1.20); PLATELET ESTIMATE DEC (ADEQUATE); SEGMENTED NEUTROPHIL (0) 49 %; TOTAL NUCLEATED CELLS 100
[2017-03-07 11:35] LABS: PROCALCITONIN 4.45 ng/mL (<0.5)
[2017-03-08 05:32] LABS: BUN (BLOOD UREA NITROGEN) 24 MG/DL (6-23); CALCIUM, SERUM 7.8 MG/DL (8.5-10.4); CHLORIDE, SERUM 111 MMOL/L (96-112); CO2 (CARBON DIOXIDE) 22 MMOL/L (24-34); CREATININE 0.54 MG/DL (0.55-1.02); GFR AFRICAN AMERICAN 106 ML/MIN (>=60); GFR NON AFRICAN AMERICAN 92 ML/MIN (>=60); GLUCOSE, SERUM 127 MG/DL (60-99); PHOSPHORUS, SERUM 2.4 MG/DL (2.5-4.5); POTASSIUM, SERUM 4.2 MMOL/L (3.5-5.3); SODIUM, SERUM 143 MMOL/L (135-148)
[2017-03-09 06:16] LABS: HEMATOCRIT 22.3 % (36.0-48.0); HEMOGLOBIN 7.4 g/dL (12.0-16.0); MEAN CORPUS HGB CONC 33.2 g/dL (32.0-36.0); MEAN CORPUSCULAR HEMOGLOB 33.3 pg (26.0-34.0); MEAN CORPUSCULAR VOLUME 100.5 fL (80-100); MEAN PLATELET VOLUME 10.2 fL (9.2-13.0); PLATELET COUNT 82 10/3/uL (150-400); RBC DISTRIBUTION WIDTH 17.3 % (12.0-16.0); RED CELL COUNT 2.22 10/6/uL (4.0-5.6)
[2017-03-09 06:18] LABS: MANUAL DIFF YES %
[2017-03-09 06:47] LABS: ALBUMIN 1.8 G/DL (3.5-5.0); BUN (BLOOD UREA NITROGEN) 26 MG/DL (6-23); CHLORIDE, SERUM 107 MMOL/L (96-112); CO2 (CARBON DIOXIDE) 25 MMOL/L (24-34); CREATININE 0.56 MG/DL (0.55-1.02); FERRITIN 4235 NG/ML (8-252); GFR AFRICAN AMERICAN 105 ML/MIN (>=60); GFR NON AFRICAN AMERICAN 91 ML/MIN (>=60); PHOSPHORUS, SERUM 1.9 MG/DL (2.5-4.5); POTASSIUM, SERUM 4.5 MMOL/L (3.5-5.3); SODIUM, SERUM 138 MMOL/L (135-148)
[2017-03-09 06:49] LABS: GLUCOSE, SERUM 180 MG/DL (60-99)
[2017-03-09 07:52] LABS: BAND NEUTROPHILS 8 %; LYMPHOCYTES 21 %; LYMPHOCYTES ABSOLUTE (CALC) 0.42 10/3/uL (0.67-4.30); MONOCYTES 5 %; NEUTROPHILS ABSOLUTE (CALC) 1.48 10/3/uL (2.02-8.40); SEGMENTED NEUTROPHIL (0) 66 %; TOTAL NUCLEATED CELLS 100
[2017-03-09 07:53] LABS: ANISOCYTOSIS 1+ (5-10/OIF) (0-5/OIF); MACROCYTES 1+ (5-10/OIF) (0-5/OIF)
[2017-03-09 07:55] LABS: PLATELET ESTIMATE DEC (ADEQUATE)
[2017-03-10 06:25] LABS: MEAN CORPUS HGB CONC 33.3 g/dL (32.0-36.0); MEAN CORPUSCULAR HEMOGLOB 33.5 pg (26.0-34.0); MEAN CORPUSCULAR VOLUME 100.4 fL (80-100); MEAN PLATELET VOLUME 10.2 fL (9.2-13.0); PLATELET COUNT 91 10/3/uL (150-400); RBC DISTRIBUTION WIDTH 17.1 % (12.0-16.0); RED CELL COUNT 2.39 10/6/uL (4.0-5.6)
[2017-03-10 06:26] LABS: MANUAL DIFF YES %; WHITE BLOOD CELLS 3.5 10/3/uL (4.5-10.5)
[2017-03-10 06:43] LABS: BUN (BLOOD UREA NITROGEN) 25 MG/DL (6-23); CHLORIDE, SERUM 107 MMOL/L (96-112); CO2 (CARBON DIOXIDE) 24 MMOL/L (24-34); CREATININE 0.42 MG/DL (0.55-1.02); GFR AFRICAN AMERICAN 115 ML/MIN (>=60); GFR NON AFRICAN AMERICAN 100 ML/MIN (>=60); GLUCOSE, SERUM 167 MG/DL (60-99); PHOSPHORUS, SERUM 1.8 MG/DL (2.5-4.5); POTASSIUM, SERUM 4.3 MMOL/L (3.5-5.3); SODIUM, SERUM 139 MMOL/L (135-148)
[2017-03-10 07:00] LABS: ANISOCYTOSIS 1+ (5-10/OIF) (0-5/OIF); BAND NEUTROPHILS 18 %; IMMATURE GRANS ABSOLUTE (CALC) 0.07 10/3/uL (0.0-0.11); LYMPHOCYTES 14 %; LYMPHOCYTES ABSOLUTE (CALC) 0.49 10/3/uL (0.67-4.30); MACROCYTES 1+ (5-10/OIF) (0-5/OIF); METAMYELOCYTES 2 %; MONOCYTES 2 %; MONOCYTES ABSOLUTE (CALC) 0.07 10/3/uL (0.21-1.20); NEUTROPHILS ABSOLUTE (CALC) 2.87 10/3/uL (2.02-8.40); PLATELET ESTIMATE DEC (ADEQUATE); SEGMENTED NEUTROPHIL (0) 64 %; TOTAL NUCLEATED CELLS 100
[2017-03-11 05:58] LABS: HEMOGLOBIN 9.5 g/dL (12.0-16.0); MEAN CORPUS HGB CONC 33.7 g/dL (32.0-36.0); MEAN CORPUSCULAR VOLUME 97.9 fL (80-100); MEAN PLATELET VOLUME 11.6 fL (9.2-13.0); RBC DISTRIBUTION WIDTH 17.1 % (12.0-16.0)
[2017-03-11 06:02] LABS: HEMATOCRIT 28.2 % (36.0-48.0); MANUAL DIFF YES %; PLATELET COUNT 126 10/3/uL (150-400); RED CELL COUNT 2.88 10/6/uL (4.0-5.6); WHITE BLOOD CELLS 5.9 10/3/uL (4.5-10.5)
[2017-03-11 06:24] LABS: ALBUMIN 1.9 G/DL (3.5-5.0); BUN (BLOOD UREA NITROGEN) 25 MG/DL (6-23); CHLORIDE, SERUM 104 MMOL/L (96-112); CO2 (CARBON DIOXIDE) 25 MMOL/L (24-34); CREATININE 0.47 MG/DL (0.55-1.02); GFR AFRICAN AMERICAN 111 ML/MIN (>=60); GFR NON AFRICAN AMERICAN 96 ML/MIN (>=60); PHOSPHORUS, SERUM 2.3 MG/DL (2.5-4.5); POTASSIUM, SERUM 3.9 MMOL/L (3.5-5.3); SODIUM, SERUM 136 MMOL/L (135-148)
[2017-03-11 06:25] LABS: GLUCOSE, SERUM 125 MG/DL (60-99)
[2017-03-11 06:38] LABS: ANISOCYTOSIS 1+ (5-10/OIF) (0-5/OIF); BAND NEUTROPHILS 13 %; LYMPHOCYTES 13 %; LYMPHOCYTES ABSOLUTE (CALC) 0.77 10/3/uL (0.67-4.30); MONOCYTES 2 %; MONOCYTES ABSOLUTE (CALC) 0.12 10/3/uL (0.21-1.20); NEUTROPHILS ABSOLUTE (CALC) 5.02 10/3/uL (2.02-8.40); PLATELET ESTIMATE SLT DEC (ADEQUATE); SEGMENTED NEUTROPHIL (0) 72 %; TOTAL NUCLEATED CELLS 100
[2017-03-12 04:45] LABS: HEMATOCRIT 28.5 % (36.0-48.0); HEMOGLOBIN 10.1 g/dL (12.0-16.0); MEAN CORPUSCULAR HEMOGLOB 33.2 pg (26.0-34.0); MEAN PLATELET VOLUME 10.5 fL (9.2-13.0); PLATELET COUNT 127 10/3/uL (150-400); RBC DISTRIBUTION WIDTH 16.6 % (12.0-16.0); RED CELL COUNT 3.04 10/6/uL (4.0-5.6); WHITE BLOOD CELLS 6.9 10/3/uL (4.5-10.5)
[2017-03-12 04:46] LABS: MANUAL DIFF YES %; MEAN CORPUS HGB CONC 35.4 g/dL (32.0-36.0); MEAN CORPUSCULAR VOLUME 93.8 fL (80-100)
[2017-03-12 04:59] LABS: CHLORIDE, SERUM 99 MMOL/L (96-112); CO2 (CARBON DIOXIDE) 28 MMOL/L (24-34); CREATININE 0.41 MG/DL (0.55-1.02); GFR AFRICAN AMERICAN 116 ML/MIN (>=60); GFR NON AFRICAN AMERICAN 100 ML/MIN (>=60); GLUCOSE, SERUM 113 MG/DL (60-99); PHOSPHORUS, SERUM 2.4 MG/DL (2.5-4.5); POTASSIUM, SERUM 3.7 MMOL/L (3.5-5.3); SODIUM, SERUM 134 MMOL/L (135-148)
[2017-03-12 05:00] LABS: BUN (BLOOD UREA NITROGEN) 21 MG/DL (6-23)
[2017-03-12 06:08] LABS: BAND NEUTROPHILS 10 %; EOSINOPHILS 1 %; EOSINOPHILS ABSOLUTE (CALC) 0.07 10/3/uL (0.0-0.53); IMMATURE GRANS ABSOLUTE (CALC) 0.28 10/3/uL (0.0-0.11); LYMPHOCYTES 13 %; METAMYELOCYTES 3 %; MONOCYTES 3 %; MONOCYTES ABSOLUTE (CALC) 0.21 10/3/uL (0.21-1.20); MYELOCYTES 1 %; NEUTROPHILS ABSOLUTE (CALC) 5.45 10/3/uL (2.02-8.40); PLATELET ESTIMATE SLT DEC (ADEQUATE); SEGMENTED NEUTROPHIL (0) 69 %; TOTAL NUCLEATED CELLS 100
[2017-03-12 06:09] LABS: ANISOCYTOSIS 1+ (5-10/OIF) (0-5/OIF)
[2017-03-13 04:44] LABS: CALCIUM IONIZED 4.33 MG/DL (3.80-4.80)
[2017-03-13 04:45] LABS: HEMATOCRIT 28.9 % (36.0-48.0); HEMOGLOBIN 9.9 g/dL (12.0-16.0); MEAN CORPUS HGB CONC 34.3 g/dL (32.0-36.0); MEAN CORPUSCULAR HEMOGLOB 32.9 pg (26.0-34.0); MEAN PLATELET VOLUME 10.3 fL (9.2-13.0); PLATELET COUNT 143 10/3/uL (150-400); RBC DISTRIBUTION WIDTH 16.4 % (12.0-16.0); RED CELL COUNT 3.01 10/6/uL (4.0-5.6); WHITE BLOOD CELLS 7.9 10/3/uL (4.5-10.5)
[2017-03-13 04:46] LABS: MANUAL DIFF YES %
[2017-03-13 05:05] LABS: ALBUMIN 1.8 G/DL (3.5-5.0); BUN (BLOOD UREA NITROGEN) 24 MG/DL (6-23); CALCIUM, SERUM 7.8 MG/DL (8.5-10.4); CHLORIDE, SERUM 100 MMOL/L (96-112); CO2 (CARBON DIOXIDE) 25 MMOL/L (24-34); CREATININE 0.41 MG/DL (0.55-1.02); GFR AFRICAN AMERICAN 116 ML/MIN (>=60); GFR NON AFRICAN AMERICAN 100 ML/MIN (>=60); PHOSPHORUS, SERUM 2.5 MG/DL (2.5-4.5); POTASSIUM, SERUM 3.7 MMOL/L (3.5-5.3); PREALBUMIN 16.6 MG/DL (17.0-43.0); SODIUM, SERUM 136 MMOL/L (135-148)
[2017-03-13 05:06] LABS: GLUCOSE, SERUM 143 MG/DL (60-99); TRIGLYCERIDE 98 MG/DL (< 150)
[2017-03-13 06:57] LABS: BAND NEUTROPHILS 15 %; IMMATURE GRANS ABSOLUTE (CALC) 0.32 10/3/uL (0.0-0.11); LYMPHOCYTES 16 %; LYMPHOCYTES ABSOLUTE (CALC) 1.26 10/3/uL (0.67-4.30); METAMYELOCYTES 3 %; MONOCYTES 3 %; MONOCYTES ABSOLUTE (CALC) 0.24 10/3/uL (0.21-1.20); MYELOCYTES 1 %; NEUTROPHILS ABSOLUTE (CALC) 6.08 10/3/uL (2.02-8.40); PLATELET ESTIMATE SLT DEC (ADEQUATE); POLYCHROMASIA 1+ (2-5/OIF) (0-1/OIF); SEGMENTED NEUTROPHIL (0) 62 %; TOTAL NUCLEATED CELLS 100; TOXIC GRANULATION 1+
[2017-03-13 16:56] LABS: ROCKY MTN SPOTTED FEVER AB IGG <1:64 (LTD64); ROCKY MTN SPOTTED FEVER AB IGM <1:64 (LTD64)
[2017-03-14 06:12] LABS: HEMATOCRIT 30.3 % (36.0-48.0); HEMOGLOBIN 10.2 g/dL (12.0-16.0); MEAN CORPUS HGB CONC 33.7 g/dL (32.0-36.0); MEAN CORPUSCULAR HEMOGLOB 33.3 pg (26.0-34.0); MEAN PLATELET VOLUME 10.6 fL (9.2-13.0); PLATELET COUNT 150 10/3/uL (150-400); RED CELL COUNT 3.06 10/6/uL (4.0-5.6); WHITE BLOOD CELLS 8.3 10/3/uL (4.5-10.5)
[2017-03-14 06:13] LABS: MANUAL DIFF YES %
[2017-03-14 06:31] LABS: BUN (BLOOD UREA NITROGEN) 23 MG/DL (6-23); CALCIUM, SERUM 8.4 MG/DL (8.5-10.4); CHLORIDE, SERUM 104 MMOL/L (96-112); CO2 (CARBON DIOXIDE) 25 MMOL/L (24-34); CREATININE 0.45 MG/DL (0.55-1.02); GFR AFRICAN AMERICAN 113 ML/MIN (>=60); GFR NON AFRICAN AMERICAN 97 ML/MIN (>=60); PHOSPHORUS, SERUM 2.3 MG/DL (2.5-4.5); SODIUM, SERUM 137 MMOL/L (135-148)
[2017-03-14 06:32] LABS: GLUCOSE, SERUM 86 MG/DL (60-99); POTASSIUM, SERUM 4.7 MMOL/L (3.5-5.3)
[2017-03-14 06:33] LABS: BAND NEUTROPHILS 12 %; LYMPHOCYTES 10 %; LYMPHOCYTES ABSOLUTE (CALC) 0.83 10/3/uL (0.67-4.30); MONOCYTES 2 %; MONOCYTES ABSOLUTE (CALC) 0.17 10/3/uL (0.21-1.20); SEGMENTED NEUTROPHIL (0) 76 %; TOTAL NUCLEATED CELLS 100
[2017-03-14 06:34] LABS: ANISOCYTOSIS 1+ (5-10/OIF) (0-5/OIF); PLATELET ESTIMATE ADQ (ADEQUATE); RBC MORPHOLOGY ABN (NORMAL)
[2017-03-15 05:12] LABS: HEMOGLOBIN 9.6 g/dL (12.0-16.0); MEAN CORPUS HGB CONC 35.3 g/dL (32.0-36.0); MEAN CORPUSCULAR HEMOGLOB 34.3 pg (26.0-34.0); MEAN CORPUSCULAR VOLUME 97.1 fL (80-100); MEAN PLATELET VOLUME 10.8 fL (9.2-13.0); PLATELET COUNT 169 10/3/uL (150-400); RBC DISTRIBUTION WIDTH 16.9 % (12.0-16.0); WHITE BLOOD CELLS 7.5 10/3/uL (4.5-10.5)
[2017-03-15 05:13] LABS: HEMATOCRIT 27.2 % (36.0-48.0); MANUAL DIFF YES %
[2017-03-15 05:23] LABS: BUN (BLOOD UREA NITROGEN) 22 MG/DL (6-23); CALCIUM, SERUM 8.2 MG/DL (8.5-10.4); CHLORIDE, SERUM 103 MMOL/L (96-112); CO2 (CARBON DIOXIDE) 26 MMOL/L (24-34); CREATININE 0.42 MG/DL (0.55-1.02); GFR AFRICAN AMERICAN 115 ML/MIN (>=60); GFR NON AFRICAN AMERICAN 100 ML/MIN (>=60); PHOSPHORUS, SERUM 2.7 MG/DL (2.5-4.5); POTASSIUM, SERUM 4.1 MMOL/L (3.5-5.3); SODIUM, SERUM 138 MMOL/L (135-148)
[2017-03-15 05:26] LABS: GLUCOSE, SERUM 120 MG/DL (60-99)
[2017-03-15 06:10] LABS: BAND NEUTROPHILS 4 %; LYMPHOCYTES 21 %; LYMPHOCYTES ABSOLUTE (CALC) 1.58 10/3/uL (0.67-4.30); NEUTROPHILS ABSOLUTE (CALC) 5.93 10/3/uL (2.02-8.40); SEGMENTED NEUTROPHIL (0) 75 %; TOTAL NUCLEATED CELLS 100
[2017-03-15 06:11] LABS: PLATELET ESTIMATE ADQ (ADEQUATE); RBC MORPHOLOGY NORM (NORMAL)
[2017-03-16 00:41] LABS: ASCORBIC ACID (UR NOT ORDER) NEG (NEG); BILIRUBIN, URINE NEGATIVE (NEG); KETONE, URINE NEGATIVE (NEG); LEUKOCYTE ESTERASE(NOT OR NEG (NEG); WBC (NOT ORDERED) (RFLEX) 4 (0-5)
[2017-03-16 05:20] LABS: BUN (BLOOD UREA NITROGEN) 23 MG/DL (6-23); CALCIUM, SERUM 8.1 MG/DL (8.5-10.4); CHLORIDE, SERUM 104 MMOL/L (96-112); CO2 (CARBON DIOXIDE) 26 MMOL/L (24-34); GFR AFRICAN AMERICAN 117 ML/MIN (>=60); GFR NON AFRICAN AMERICAN 101 ML/MIN (>=60); GLUCOSE, SERUM 112 MG/DL (60-99); PHOSPHORUS, SERUM 2.7 MG/DL (2.5-4.5); POTASSIUM, SERUM 4.1 MMOL/L (3.5-5.3); SODIUM, SERUM 138 MMOL/L (135-148)
[2017-03-17 05:42] LABS: HEMATOCRIT 25.5 % (36.0-48.0); HEMOGLOBIN 8.7 g/dL (12.0-16.0); MANUAL DIFF YES %; MEAN CORPUS HGB CONC 34.1 g/dL (32.0-36.0); MEAN CORPUSCULAR HEMOGLOB 33.5 pg (26.0-34.0); MEAN CORPUSCULAR VOLUME 98.1 fL (80-100); MEAN PLATELET VOLUME 9.5 fL (9.2-13.0); PLATELET COUNT 186 10/3/uL (150-400); RBC DISTRIBUTION WIDTH 16.5 % (12.0-16.0); WHITE BLOOD CELLS 5.5 10/3/uL (4.5-10.5)
[2017-03-17 05:48] LABS: BUN (BLOOD UREA NITROGEN) 21 MG/DL (6-23); CHLORIDE, SERUM 103 MMOL/L (96-112); CO2 (CARBON DIOXIDE) 23 MMOL/L (24-34); CREATININE 0.41 MG/DL (0.55-1.02); GFR AFRICAN AMERICAN 116 ML/MIN (>=60); GFR NON AFRICAN AMERICAN 100 ML/MIN (>=60); GLUCOSE, SERUM 110 MG/DL (60-99); PHOSPHORUS, SERUM 2.6 MG/DL (2.5-4.5); POTASSIUM, SERUM 4.1 MMOL/L (3.5-5.3); SODIUM, SERUM 135 MMOL/L (135-148)
[2017-03-17 06:19] LABS: BAND NEUTROPHILS 5 %; EOSINOPHILS 1 %; EOSINOPHILS ABSOLUTE (CALC) 0.06 10/3/uL (0.0-0.53); IMMATURE GRANS ABSOLUTE (CALC) 0.11 10/3/uL (0.0-0.11); LYMPHOCYTES 12 %; LYMPHOCYTES ABSOLUTE (CALC) 0.66 10/3/uL (0.67-4.30); METAMYELOCYTES 1 %; MONOCYTES 1 %; MONOCYTES ABSOLUTE (CALC) 0.06 10/3/uL (0.21-1.20); MYELOCYTES 1 %; NEUTROPHILS ABSOLUTE (CALC) 4.62 10/3/uL (2.02-8.40); PLATELET ESTIMATE ADQ (ADEQUATE); RBC MORPHOLOGY NORM (NORMAL); SEGMENTED NEUTROPHIL (0) 79 %; TOTAL NUCLEATED CELLS 100
[2017-03-18 05:36] LABS: HEMATOCRIT 26.3 % (36.0-48.0); HEMOGLOBIN 8.9 g/dL (12.0-16.0); MEAN CORPUS HGB CONC 33.8 g/dL (32.0-36.0); MEAN CORPUSCULAR VOLUME 97.4 fL (80-100); MEAN PLATELET VOLUME 9.5 fL (9.2-13.0); PLATELET COUNT 194 10/3/uL (150-400); RBC DISTRIBUTION WIDTH 16.5 % (12.0-16.0); WHITE BLOOD CELLS 5.7 10/3/uL (4.5-10.5)
[2017-03-18 05:37] LABS: MANUAL DIFF YES %
[2017-03-18 05:54] LABS: BUN (BLOOD UREA NITROGEN) 23 MG/DL (6-23); CALCIUM, SERUM 8.1 MG/DL (8.5-10.4); CHLORIDE, SERUM 102 MMOL/L (96-112); CO2 (CARBON DIOXIDE) 23 MMOL/L (24-34); CREATININE 0.48 MG/DL (0.55-1.02); GFR AFRICAN AMERICAN 110 ML/MIN (>=60); GFR NON AFRICAN AMERICAN 95 ML/MIN (>=60); GLUCOSE, SERUM 117 MG/DL (60-99); PHOSPHORUS, SERUM 2.3 MG/DL (2.5-4.5); SODIUM, SERUM 135 MMOL/L (135-148)
[2017-03-18 06:21] LABS: BAND NEUTROPHILS 15 %; EOSINOPHILS 1 %; EOSINOPHILS ABSOLUTE (CALC) 0.06 10/3/uL (0.0-0.53); IMMATURE GRANS ABSOLUTE (CALC) 0.06 10/3/uL (0.0-0.11); LYMPHOCYTES 10 %; LYMPHOCYTES ABSOLUTE (CALC) 0.57 10/3/uL (0.67-4.30); METAMYELOCYTES 1 %; MONOCYTES 1 %; MONOCYTES ABSOLUTE (CALC) 0.06 10/3/uL (0.21-1.20); NEUTROPHILS ABSOLUTE (CALC) 4.96 10/3/uL (2.02-8.40); PLATELET ESTIMATE ADQ (ADEQUATE); SEGMENTED NEUTROPHIL (0) 72 %; TOTAL NUCLEATED CELLS 100
[2017-03-18 06:22] LABS: ANISOCYTOSIS 1+ (5-10/OIF) (0-5/OIF)
[2017-03-18 06:23] LABS: GIANT PLATELET FEW; POLYCHROMASIA 1+ (2-5/OIF) (0-1/OIF)
[2017-03-18 06:24] LABS: TOXIC GRANULATION 1+
[2017-03-19 05:38] LABS: BUN (BLOOD UREA NITROGEN) 24 MG/DL (6-23); CALCIUM, SERUM 8.4 MG/DL (8.5-10.4); CHLORIDE, SERUM 105 MMOL/L (96-112); CO2 (CARBON DIOXIDE) 23 MMOL/L (24-34); CREATININE 0.49 MG/DL (0.55-1.02); GFR AFRICAN AMERICAN 110 ML/MIN (>=60); GFR NON AFRICAN AMERICAN 95 ML/MIN (>=60); GLUCOSE, SERUM 128 MG/DL (60-99); PHOSPHORUS, SERUM 2.5 MG/DL (2.5-4.5); POTASSIUM, SERUM 4.1 MMOL/L (3.5-5.3); SODIUM, SERUM 136 MMOL/L (135-148)
[2017-03-20 06:15] LABS: HEMATOCRIT 26.4 % (36.0-48.0); HEMOGLOBIN 8.9 g/dL (12.0-16.0); MEAN CORPUS HGB CONC 33.7 g/dL (32.0-36.0); MEAN CORPUSCULAR HEMOGLOB 32.6 pg (26.0-34.0); MEAN CORPUSCULAR VOLUME 96.7 fL (80-100); PLATELET COUNT 200 10/3/uL (150-400); RBC DISTRIBUTION WIDTH 16.7 % (12.0-16.0); RED CELL COUNT 2.73 10/6/uL (4.0-5.6)
[2017-03-20 06:22] LABS: MANUAL DIFF YES %; WHITE BLOOD CELLS 3.4 10/3/uL (4.5-10.5)
[2017-03-20 06:24] LABS: BUN (BLOOD UREA NITROGEN) 23 MG/DL (6-23); CALCIUM, SERUM 8.4 MG/DL (8.5-10.4); CHLORIDE, SERUM 103 MMOL/L (96-112); CO2 (CARBON DIOXIDE) 22 MMOL/L (24-34); CREATININE 0.46 MG/DL (0.55-1.02); GFR AFRICAN AMERICAN 112 ML/MIN (>=60); GFR NON AFRICAN AMERICAN 97 ML/MIN (>=60); GLUCOSE, SERUM 121 MG/DL (60-99); PHOSPHORUS, SERUM 2.6 MG/DL (2.5-4.5); POTASSIUM, SERUM 4.1 MMOL/L (3.5-5.3); SODIUM, SERUM 137 MMOL/L (135-148)
[2017-03-20 07:38] LABS: BAND NEUTROPHILS 17 %; EOSINOPHILS 1 %; EOSINOPHILS ABSOLUTE (CALC) 0.03 10/3/uL (0.0-0.53); LYMPHOCYTES 17 %; LYMPHOCYTES ABSOLUTE (CALC) 0.58 10/3/uL (0.67-4.30); MONOCYTES 2 %; MONOCYTES ABSOLUTE (CALC) 0.07 10/3/uL (0.21-1.20); NEUTROPHILS ABSOLUTE (CALC) 2.72 10/3/uL (2.02-8.40); PLATELET ESTIMATE ADQ (ADEQUATE); SEGMENTED NEUTROPHIL (0) 63 %; TOTAL NUCLEATED CELLS 100
[2017-03-20 07:39] LABS: POLYCHROMASIA 1+ (2-5/OIF) (0-1/OIF)
[2017-03-21 06:24] LABS: HEMATOCRIT 26.7 % (36.0-48.0); HEMOGLOBIN 8.9 g/dL (12.0-16.0); MEAN CORPUS HGB CONC 33.3 g/dL (32.0-36.0); MEAN CORPUSCULAR HEMOGLOB 32.4 pg (26.0-34.0); MEAN CORPUSCULAR VOLUME 97.1 fL (80-100); MEAN PLATELET VOLUME 9.5 fL (9.2-13.0); PLATELET COUNT 198 10/3/uL (150-400); RBC DISTRIBUTION WIDTH 16.9 % (12.0-16.0); RED CELL COUNT 2.75 10/6/uL (4.0-5.6); WHITE BLOOD CELLS 3.4 10/3/uL (4.5-10.5)
[2017-03-21 06:25] LABS: MANUAL DIFF YES %
[2017-03-21 06:50] LABS: BUN (BLOOD UREA NITROGEN) 22 MG/DL (6-23); CALCIUM, SERUM 8.7 MG/DL (8.5-10.4); CHLORIDE, SERUM 105 MMOL/L (96-112); CO2 (CARBON DIOXIDE) 23 MMOL/L (24-34); CREATININE 0.45 MG/DL (0.55-1.02); GFR AFRICAN AMERICAN 113 ML/MIN (>=60); GFR NON AFRICAN AMERICAN 97 ML/MIN (>=60); GLUCOSE, SERUM 113 MG/DL (60-99); POTASSIUM, SERUM 4.5 MMOL/L (3.5-5.3); SODIUM, SERUM 137 MMOL/L (135-148); TRIGLYCERIDE 107 MG/DL (< 150)
[2017-03-21 07:02] LABS: ANISOCYTOSIS 1+ (5-10/OIF) (0-5/OIF); BAND NEUTROPHILS 2 %; IMMATURE GRANS ABSOLUTE (CALC) 0.03 10/3/uL (0.0-0.11); LYMPHOCYTES 25 %; LYMPHOCYTES ABSOLUTE (CALC) 0.85 10/3/uL (0.67-4.30); METAMYELOCYTES 1 %; NEUTROPHILS ABSOLUTE (CALC) 2.52 10/3/uL (2.02-8.40); PLATELET ESTIMATE ADQ (ADEQUATE); SEGMENTED NEUTROPHIL (0) 72 %; TOTAL NUCLEATED CELLS 100
[2017-03-21 15:53] LABS: PROCALCITONIN 0.19 ng/mL (<0.5)
[2017-03-21 16:20] LABS: ASCORBIC ACID (UR NOT ORDER) NEG (NEG); BILIRUBIN, URINE NEGATIVE (NEG); KETONE, URINE NEGATIVE (NEG); LEUKOCYTE ESTERASE(NOT OR NEG (NEG); WBC (NOT ORDERED) (RFLEX) 1 (0-5)
[2017-03-22 05:12] LABS: BUN (BLOOD UREA NITROGEN) 23 MG/DL (6-23); CALCIUM, SERUM 8.4 MG/DL (8.5-10.4); CHLORIDE, SERUM 100 MMOL/L (96-112); CO2 (CARBON DIOXIDE) 21 MMOL/L (24-34); CREATININE 0.48 MG/DL (0.55-1.02); GFR AFRICAN AMERICAN 110 ML/MIN (>=60); GFR NON AFRICAN AMERICAN 95 ML/MIN (>=60); GLUCOSE, SERUM 118 MG/DL (60-99); PHOSPHORUS, SERUM 2.8 MG/DL (2.5-4.5); POTASSIUM, SERUM 4.3 MMOL/L (3.5-5.3); SODIUM, SERUM 134 MMOL/L (135-148)
[2017-03-23 05:32] LABS: HEMOGLOBIN 8.4 g/dL (12.0-16.0); MEAN CORPUSCULAR HEMOGLOB 32.9 pg (26.0-34.0); PLATELET COUNT 159 10/3/uL (150-400); RBC DISTRIBUTION WIDTH 16.7 % (12.0-16.0); RED CELL COUNT 2.55 10/6/uL (4.0-5.6); WHITE BLOOD CELLS 3.2 10/3/uL (4.5-10.5)
[2017-03-23 05:36] LABS: INTERNATIONAL NORMAL RATI 1.2 UNITS (-)
[2017-03-23 05:37] LABS: HEMATOCRIT 23.9 % (36.0-48.0); MANUAL DIFF YES %; MEAN CORPUS HGB CONC 35.1 g/dL (32.0-36.0); MEAN CORPUSCULAR VOLUME 93.7 fL (80-100)
[2017-03-23 05:38] LABS: BUN (BLOOD UREA NITROGEN) 21 MG/DL (6-23); CALCIUM, SERUM 8.3 MG/DL (8.5-10.4); CHLORIDE, SERUM 99 MMOL/L (96-112); CO2 (CARBON DIOXIDE) 21 MMOL/L (24-34); CREATININE 0.46 MG/DL (0.55-1.02); GFR AFRICAN AMERICAN 112 ML/MIN (>=60); GFR NON AFRICAN AMERICAN 97 ML/MIN (>=60); GLUCOSE, SERUM 123 MG/DL (60-99); PHOSPHORUS, SERUM 2.7 MG/DL (2.5-4.5); POTASSIUM, SERUM 4.1 MMOL/L (3.5-5.3); PROTIME (NOT ORD) 15.1 SEC (12.0-14.5); SODIUM, SERUM 131 MMOL/L (135-148)
[2017-03-23 07:19] LABS: BAND NEUTROPHILS 18 %; IMMATURE GRANS ABSOLUTE (CALC) 0.03 10/3/uL (0.0-0.11); LYMPHOCYTES 30 %; LYMPHOCYTES ABSOLUTE (CALC) 0.96 10/3/uL (0.67-4.30); METAMYELOCYTES 1 %; MONOCYTES 1 %; MONOCYTES ABSOLUTE (CALC) 0.03 10/3/uL (0.21-1.20); NEUTROPHILS ABSOLUTE (CALC) 2.18 10/3/uL (2.02-8.40); PLATELET ESTIMATE ADQ (ADEQUATE); SEGMENTED NEUTROPHIL (0) 50 %; TOTAL NUCLEATED CELLS 100
[2017-03-23 07:20] LABS: RBC MORPHOLOGY NORM (NORMAL)
[2017-03-24 05:44] LABS: HEMATOCRIT 26.2 % (36.0-48.0); HEMOGLOBIN 8.9 g/dL (12.0-16.0); MEAN CORPUSCULAR HEMOGLOB 32.1 pg (26.0-34.0); MEAN CORPUSCULAR VOLUME 94.6 fL (80-100); PLATELET COUNT 156 10/3/uL (150-400); RBC DISTRIBUTION WIDTH 16.7 % (12.0-16.0); RED CELL COUNT 2.77 10/6/uL (4.0-5.6)
[2017-03-24 05:46] LABS: MANUAL DIFF YES %
[2017-03-24 06:04] LABS: BUN (BLOOD UREA NITROGEN) 20 MG/DL (6-23); CALCIUM, SERUM 8.5 MG/DL (8.5-10.4); CHLORIDE, SERUM 99 MMOL/L (96-112); CO2 (CARBON DIOXIDE) 19 MMOL/L (24-34); CREATININE 0.39 MG/DL (0.55-1.02); GFR AFRICAN AMERICAN 118 ML/MIN (>=60); GFR NON AFRICAN AMERICAN 102 ML/MIN (>=60); GLUCOSE, SERUM 122 MG/DL (60-99); PHOSPHORUS, SERUM 2.8 MG/DL (2.5-4.5); SODIUM, SERUM 130 MMOL/L (135-148)
[2017-03-24 07:50] LABS: BAND NEUTROPHILS 16 %; EOSINOPHILS 1 %; EOSINOPHILS ABSOLUTE (CALC) 0.03 10/3/uL (0.0-0.53); IMMATURE GRANS ABSOLUTE (CALC) 0.12 10/3/uL (0.0-0.11); LYMPHOCYTES 25 %; LYMPHOCYTES ABSOLUTE (CALC) 0.75 10/3/uL (0.67-4.30); METAMYELOCYTES 4 %; PLATELET ESTIMATE ADQ (ADEQUATE); SEGMENTED NEUTROPHIL (0) 54 %; TOTAL NUCLEATED CELLS 100
[2017-03-24 07:51] LABS: RBC MORPHOLOGY NORM (NORMAL)
[2017-03-25 06:15] LABS: BUN (BLOOD UREA NITROGEN) 21 MG/DL (6-23); CALCIUM, SERUM 9.2 MG/DL (8.5-10.4); CHLORIDE, SERUM 103 MMOL/L (96-112); CO2 (CARBON DIOXIDE) 20 MMOL/L (24-34); CREATININE 0.43 MG/DL (0.55-1.02); GFR AFRICAN AMERICAN 115 ML/MIN (>=60); GFR NON AFRICAN AMERICAN 99 ML/MIN (>=60); GLUCOSE, SERUM 108 MG/DL (60-99); PHOSPHORUS, SERUM 3.4 MG/DL (2.5-4.5); POTASSIUM, SERUM 4.6 MMOL/L (3.5-5.3); SODIUM, SERUM 131 MMOL/L (135-148)
[2017-03-26 05:05] LABS: HEMATOCRIT 24.1 % (36.0-48.0); HEMOGLOBIN 8.3 g/dL (12.0-16.0); MEAN CORPUS HGB CONC 34.4 g/dL (32.0-36.0); MEAN CORPUSCULAR HEMOGLOB 32.9 pg (26.0-34.0); MEAN CORPUSCULAR VOLUME 95.6 fL (80-100); MEAN PLATELET VOLUME 9.3 fL (9.2-13.0); PLATELET COUNT 150 10/3/uL (150-400); RBC DISTRIBUTION WIDTH 16.9 % (12.0-16.0); RED CELL COUNT 2.52 10/6/uL (4.0-5.6); WHITE BLOOD CELLS 2.7 10/3/uL (4.5-10.5)
[2017-03-26 05:07] LABS: MANUAL DIFF YES %
[2017-03-26 05:17] LABS: A/G RATIO 0.6 (0.7-1.9); ALBUMIN 1.8 G/DL (3.5-5.0); CALCIUM, SERUM 8.5 MG/DL (8.5-10.4); CHLORIDE, SERUM 105 MMOL/L (96-112); CO2 (CARBON DIOXIDE) 24 MMOL/L (24-34); GFR AFRICAN AMERICAN 109 ML/MIN (>=60); GFR NON AFRICAN AMERICAN 94 ML/MIN (>=60); GLOBULIN 3.2 G/DL (2.5-4.1); GLUCOSE, SERUM 110 MG/DL (60-99); SGOT(AST) 81 U/L (5-40); SGPT(ALT) 170 U/L (5-65); SODIUM, SERUM 137 MMOL/L (135-148); TOTAL BILIRUBIN 0.6 MG/DL (0-1.2)
[2017-03-26 05:18] LABS: ALKALINE PHOSPHATASE 444 U/L (45-117); BUN (BLOOD UREA NITROGEN) 26 MG/DL (6-23)
[2017-03-26 06:06] LABS: BAND NEUTROPHILS 8 %; LYMPHOCYTES 25 %; LYMPHOCYTES ABSOLUTE (CALC) 0.68 10/3/uL (0.67-4.30); NEUTROPHILS ABSOLUTE (CALC) 2.03 10/3/uL (2.02-8.40); SEGMENTED NEUTROPHIL (0) 67 %; TOTAL NUCLEATED CELLS 100
[2017-03-26 06:07] LABS: ANISOCYTOSIS 1+ (5-10/OIF) (0-5/OIF); PLATELET ESTIMATE ADQ (ADEQUATE)
[2017-03-27 07:15] LABS: BUN (BLOOD UREA NITROGEN) 29 MG/DL (6-23); CALCIUM, SERUM 9.6 MG/DL (8.5-10.4); CHLORIDE, SERUM 106 MMOL/L (96-112); CO2 (CARBON DIOXIDE) 20 MMOL/L (24-34); CREATININE 0.54 MG/DL (0.55-1.02); GFR AFRICAN AMERICAN 106 ML/MIN (>=60); GFR NON AFRICAN AMERICAN 92 ML/MIN (>=60); GLUCOSE, SERUM 136 MG/DL (60-99); POTASSIUM, SERUM 4.2 MMOL/L (3.5-5.3); SODIUM, SERUM 139 MMOL/L (135-148)
[2017-03-27 07:25] LABS: HEMOGLOBIN 8.7 g/dL (12.0-16.0); MEAN CORPUSCULAR HEMOGLOB 31.4 pg (26.0-34.0); MEAN CORPUSCULAR VOLUME 96.8 fL (80-100); PLATELET COUNT 193 10/3/uL (150-400); RBC DISTRIBUTION WIDTH 16.7 % (12.0-16.0); RED CELL COUNT 2.77 10/6/uL (4.0-5.6)
[2017-03-27 07:29] LABS: HEMATOCRIT 26.8 % (36.0-48.0); MANUAL DIFF YES %; MEAN CORPUS HGB CONC 32.5 g/dL (32.0-36.0)
[2017-03-27 08:41] LABS: BAND NEUTROPHILS 31 %; LYMPHOCYTES 17 %; LYMPHOCYTES ABSOLUTE (CALC) 0.51 10/3/uL (0.67-4.30); MONOCYTES 4 %; MONOCYTES ABSOLUTE (CALC) 0.12 10/3/uL (0.21-1.20); NEUTROPHILS ABSOLUTE (CALC) 2.37 10/3/uL (2.02-8.40); SEGMENTED NEUTROPHIL (0) 48 %; TOTAL NUCLEATED CELLS 100
[2017-03-27 08:42] LABS: PLATELET ESTIMATE ADQ (ADEQUATE); POLYCHROMASIA 1+ (2-5/OIF) (0-1/OIF)
[2017-03-28 06:31] LABS: HEMATOCRIT 24.4 % (36.0-48.0); HEMOGLOBIN 8.2 g/dL (12.0-16.0); MEAN CORPUS HGB CONC 33.6 g/dL (32.0-36.0); MEAN CORPUSCULAR VOLUME 95.3 fL (80-100); MEAN PLATELET VOLUME 8.9 fL (9.2-13.0); PLATELET COUNT 180 10/3/uL (150-400); RED CELL COUNT 2.56 10/6/uL (4.0-5.6)
[2017-03-28 06:32] LABS: WHITE BLOOD CELLS 1.6 10/3/uL (4.5-10.5)
[2017-03-28 06:33] LABS: MANUAL DIFF YES %
[2017-03-28 06:45] LABS: A/G RATIO 0.5 (0.7-1.9); ALBUMIN 1.7 G/DL (3.5-5.0); BUN (BLOOD UREA NITROGEN) 31 MG/DL (6-23); CALCIUM, SERUM 9.5 MG/DL (8.5-10.4); CHLORIDE, SERUM 108 MMOL/L (96-112); CO2 (CARBON DIOXIDE) 21 MMOL/L (24-34); GFR AFRICAN AMERICAN 83 ML/MIN (>=60); GFR NON AFRICAN AMERICAN 72 ML/MIN (>=60); GLOBULIN 3.5 G/DL (2.5-4.1); POTASSIUM, SERUM 3.8 MMOL/L (3.5-5.3); SGOT(AST) 135 U/L (5-40); SGPT(ALT) 139 U/L (5-65); SODIUM, SERUM 140 MMOL/L (135-148); TOTAL BILIRUBIN 0.6 MG/DL (0-1.2); TOTAL PROTEIN 5.2 G/DL (6.0-8.5)
[2017-03-28 06:46] LABS: ALKALINE PHOSPHATASE 395 U/L (45-117); GLUCOSE, SERUM 103 MG/DL (60-99)
[2017-03-28 07:32] LABS: PROCALCITONIN 3.27 ng/mL (<0.5)
[2017-03-28 08:00] LABS: BAND NEUTROPHILS 20 %; ELLIPTOCYTES 1+ (3-10/OIF) (0-2/OIF); LYMPHOCYTES 24 %; LYMPHOCYTES ABSOLUTE (CALC) 0.38 10/3/uL (0.67-4.30); MONOCYTES 6 %; NEUTROPHILS ABSOLUTE (CALC) 1.12 10/3/uL (2.02-8.40); PLATELET ESTIMATE ADQ (ADEQUATE); SEGMENTED NEUTROPHIL (0) 50 %; TEARDROP SHAPED RBCS FEW (3-10/OIF); TOTAL NUCLEATED CELLS 100
[2017-03-28 08:01] LABS: MICROCYTES 1+ (5-10/OIF) (0-5/OIF); SCHISTOCYTES OCC (0-2/OIF)
[2017-03-29 06:00] LABS: HEMATOCRIT 25.1 % (36.0-48.0); HEMOGLOBIN 8.5 g/dL (12.0-16.0); MEAN CORPUS HGB CONC 33.9 g/dL (32.0-36.0); MEAN CORPUSCULAR HEMOGLOB 32.1 pg (26.0-34.0); MEAN CORPUSCULAR VOLUME 94.7 fL (80-100); MEAN PLATELET VOLUME 9.2 fL (9.2-13.0); PLATELET COUNT 194 10/3/uL (150-400); RBC DISTRIBUTION WIDTH 17.2 % (12.0-16.0); RED CELL COUNT 2.65 10/6/uL (4.0-5.6)
[2017-03-29 06:06] LABS: MANUAL DIFF YES %; WHITE BLOOD CELLS 1.2 10/3/uL (4.5-10.5)
[2017-03-29 06:26] LABS: A/G RATIO 0.5 (0.7-1.9); ALBUMIN 1.6 G/DL (3.5-5.0); ALKALINE PHOSPHATASE 469 U/L (45-117); BUN (BLOOD UREA NITROGEN) 23 MG/DL (6-23); CALCIUM, SERUM 8.7 MG/DL (8.5-10.4); CHLORIDE, SERUM 113 MMOL/L (96-112); CO2 (CARBON DIOXIDE) 21 MMOL/L (24-34); CREATININE 0.62 MG/DL (0.55-1.02); GFR AFRICAN AMERICAN 102 ML/MIN (>=60); GFR NON AFRICAN AMERICAN 88 ML/MIN (>=60); GLOBULIN 3.1 G/DL (2.5-4.1); GLUCOSE, SERUM 101 MG/DL (60-99); POTASSIUM, SERUM 3.5 MMOL/L (3.5-5.3); SGOT(AST) 132 U/L (5-40); SGPT(ALT) 113 U/L (5-65); SODIUM, SERUM 143 MMOL/L (135-148); TOTAL BILIRUBIN 0.5 MG/DL (0-1.2); TOTAL PROTEIN 4.7 G/DL (6.0-8.5); VANCOMYCIN TROUGH 26.2 MCG/ML (10.0-20.0)
[2017-03-29 06:41] LABS: ANISOCYTOSIS 1+ (5-10/OIF) (0-5/OIF); BAND NEUTROPHILS 18 %; LYMPHOCYTES 31 %; LYMPHOCYTES ABSOLUTE (CALC) 0.37 10/3/uL (0.67-4.30); MONOCYTES 4 %; MONOCYTES ABSOLUTE (CALC) 0.05 10/3/uL (0.21-1.20); NEUTROPHILS ABSOLUTE (CALC) 0.78 10/3/uL (2.02-8.40); PLATELET ESTIMATE ADQ (ADEQUATE); SEGMENTED NEUTROPHIL (0) 47 %; TOTAL NUCLEATED CELLS 100
[2017-03-29 06:42] LABS: ELLIPTOCYTES 1+ (3-10/OIF) (0-2/OIF)
[2017-03-30 07:10] LABS: HEMATOCRIT 25.8 % (36.0-48.0); HEMOGLOBIN 8.4 g/dL (12.0-16.0); MEAN CORPUS HGB CONC 32.6 g/dL (32.0-36.0); MEAN CORPUSCULAR HEMOGLOB 31.3 pg (26.0-34.0); MEAN CORPUSCULAR VOLUME 96.3 fL (80-100); MEAN PLATELET VOLUME 9.1 fL (9.2-13.0); PLATELET COUNT 161 10/3/uL (150-400); RBC DISTRIBUTION WIDTH 17.2 % (12.0-16.0); RED CELL COUNT 2.68 10/6/uL (4.0-5.6)
[2017-03-30 07:11] LABS: MANUAL DIFF YES %; WHITE BLOOD CELLS 1.6 10/3/uL (4.5-10.5)
[2017-03-30 07:25] LABS: A/G RATIO 0.5 (0.7-1.9); ALBUMIN 1.5 G/DL (3.5-5.0); ALKALINE PHOSPHATASE 365 U/L (45-117); BUN (BLOOD UREA NITROGEN) 19 MG/DL (6-23); CALCIUM, SERUM 8.7 MG/DL (8.5-10.4); CHLORIDE, SERUM 112 MMOL/L (96-112); CO2 (CARBON DIOXIDE) 23 MMOL/L (24-34); CREATININE 0.55 MG/DL (0.55-1.02); GFR AFRICAN AMERICAN 106 ML/MIN (>=60); GFR NON AFRICAN AMERICAN 91 ML/MIN (>=60); GLOBULIN 3.1 G/DL (2.5-4.1); GLUCOSE, SERUM 101 MG/DL (60-99); POTASSIUM, SERUM 3.2 MMOL/L (3.5-5.3); SGOT(AST) 108 U/L (5-40); SGPT(ALT) 81 U/L (5-65); SODIUM, SERUM 144 MMOL/L (135-148); TOTAL BILIRUBIN 0.5 MG/DL (0-1.2); TOTAL PROTEIN 4.6 G/DL (6.0-8.5)
[2017-03-30 07:41] LABS: BAND NEUTROPHILS 24 %; LYMPHOCYTES 22 %; LYMPHOCYTES ABSOLUTE (CALC) 0.35 10/3/uL (0.67-4.30); METAMYELOCYTES 6 %; MONOCYTES 3 %; MONOCYTES ABSOLUTE (CALC) 0.05 10/3/uL (0.21-1.20); PLATELET ESTIMATE ADQ (ADEQUATE); SCHISTOCYTES OCC (0-2/OIF); SEGMENTED NEUTROPHIL (0) 45 %; TOTAL NUCLEATED CELLS 100
[2017-03-30 07:42] LABS: ELLIPTOCYTES 1+ (3-10/OIF) (0-2/OIF)
[2017-03-30 09:06] LABS: PROCALCITONIN 7.38 ng/mL (<0.5)
[2017-03-31 05:25] LABS: HEMOGLOBIN 9.7 g/dL (12.0-16.0); MEAN CORPUS HGB CONC 33.8 g/dL (32.0-36.0); MEAN CORPUSCULAR HEMOGLOB 31.7 pg (26.0-34.0); MEAN CORPUSCULAR VOLUME 93.8 fL (80-100); MEAN PLATELET VOLUME 9.7 fL (9.2-13.0); PLATELET COUNT 159 10/3/uL (150-400); RBC DISTRIBUTION WIDTH 17.4 % (12.0-16.0); RED CELL COUNT 3.06 10/6/uL (4.0-5.6)
[2017-03-31 05:26] LABS: HEMATOCRIT 28.7 % (36.0-48.0); MANUAL DIFF YES %; WHITE BLOOD CELLS 2.2 10/3/uL (4.5-10.5)
[2017-03-31 05:42] LABS: A/G RATIO 0.5 (0.7-1.9); ALBUMIN 1.6 G/DL (3.5-5.0); ALKALINE PHOSPHATASE 457 U/L (45-117); BUN (BLOOD UREA NITROGEN) 16 MG/DL (6-23); CALCIUM, SERUM 8.4 MG/DL (8.5-10.4); CHLORIDE, SERUM 109 MMOL/L (96-112); CO2 (CARBON DIOXIDE) 22 MMOL/L (24-34); CREATININE 0.47 MG/DL (0.55-1.02); DIRECT BILIRUBIN 0.4 MG/DL (0.0-0.4); GFR AFRICAN AMERICAN 111 ML/MIN (>=60); GFR NON AFRICAN AMERICAN 96 ML/MIN (>=60); GLOBULIN 3.5 G/DL (2.5-4.1); GLUCOSE, SERUM 81 MG/DL (60-99); INDIRECT BILIRUBIN(NOT ORDER) 0.5 MG/DL (0.1-0.9); POTASSIUM, SERUM 2.7 MMOL/L (3.5-5.3); SGOT(AST) 94 U/L (5-40); SGPT(ALT) 71 U/L (5-65); SODIUM, SERUM 142 MMOL/L (135-148); TOTAL BILIRUBIN 0.9 MG/DL (0-1.2); TOTAL PROTEIN 5.1 G/DL (6.0-8.5)
[2017-03-31 05:55] LABS: ANISOCYTOSIS 1+ (5-10/OIF) (0-5/OIF); BAND NEUTROPHILS 34 %; IMMATURE GRANS ABSOLUTE (CALC) 0.07 10/3/uL (0.0-0.11); LYMPHOCYTES 23 %; METAMYELOCYTES 3 %; NEUTROPHILS ABSOLUTE (CALC) 1.63 10/3/uL (2.02-8.40); PLATELET ESTIMATE ADQ (ADEQUATE); SEGMENTED NEUTROPHIL (0) 40 %; TOTAL NUCLEATED CELLS 92
[2017-04-01 06:19] LABS: HEMATOCRIT 29.2 % (36.0-48.0); HEMOGLOBIN 9.8 g/dL (12.0-16.0); MANUAL DIFF YES %; MEAN CORPUS HGB CONC 33.6 g/dL (32.0-36.0); MEAN CORPUSCULAR HEMOGLOB 31.6 pg (26.0-34.0); MEAN CORPUSCULAR VOLUME 94.2 fL (80-100); MEAN PLATELET VOLUME 9.6 fL (9.2-13.0); PLATELET COUNT 123 10/3/uL (150-400); RBC DISTRIBUTION WIDTH 17.6 % (12.0-16.0); WHITE BLOOD CELLS 3.6 10/3/uL (4.5-10.5)
[2017-04-01 06:36] LABS: A/G RATIO 0.4 (0.7-1.9); ALBUMIN 1.5 G/DL (3.5-5.0); CALCIUM, SERUM 8.8 MG/DL (8.5-10.4); CHLORIDE, SERUM 111 MMOL/L (96-112); CO2 (CARBON DIOXIDE) 24 MMOL/L (24-34); CREATININE 0.49 MG/DL (0.55-1.02); GFR AFRICAN AMERICAN 110 ML/MIN (>=60); GFR NON AFRICAN AMERICAN 95 ML/MIN (>=60); GLOBULIN 3.4 G/DL (2.5-4.1); GLUCOSE, SERUM 90 MG/DL (60-99); SGOT(AST) 70 U/L (5-40); SGPT(ALT) 56 U/L (5-65); SODIUM, SERUM 144 MMOL/L (135-148); TOTAL BILIRUBIN 0.8 MG/DL (0-1.2); TOTAL PROTEIN 4.9 G/DL (6.0-8.5)
[2017-04-01 06:37] LABS: ALKALINE PHOSPHATASE 349 U/L (45-117); BUN (BLOOD UREA NITROGEN) 22 MG/DL (6-23); POTASSIUM, SERUM 3.5 MMOL/L (3.5-5.3)
[2017-04-01 06:57] LABS: ANISOCYTOSIS 1+ (5-10/OIF) (0-5/OIF); BAND NEUTROPHILS 30 %; EOSINOPHILS 1 %; EOSINOPHILS ABSOLUTE (CALC) 0.04 10/3/uL (0.0-0.53); HELMET CELLS OCC (0-2/OIF); IMMATURE GRANS ABSOLUTE (CALC) 0.18 10/3/uL (0.0-0.11); LYMPHOCYTES 18 %; LYMPHOCYTES ABSOLUTE (CALC) 0.65 10/3/uL (0.67-4.30); METAMYELOCYTES 4 %; MONOCYTES 5 %; MONOCYTES ABSOLUTE (CALC) 0.18 10/3/uL (0.21-1.20); MYELOCYTES 1 %; NEUTROPHILS ABSOLUTE (CALC) 2.56 10/3/uL (2.02-8.40); PLATELET ESTIMATE SLT DEC (ADEQUATE); POLYCHROMASIA 1+ (2-5/OIF) (0-1/OIF); SEGMENTED NEUTROPHIL (0) 41 %; TARGET CELLS OCC (1-2/OIF) (0-1/OIF); TEARDROP SHAPED RBCS OCC (0-2/OIF); TOTAL NUCLEATED CELLS 100; TOXIC GRANULATION 1+; VACUOLATED NEUTROPHILES OCC
[2017-04-01 07:59] LABS: PROCALCITONIN 4.19 ng/mL (<0.5)
[2017-04-01 16:21] LABS: CMV SOURCE Plasma (())
[2017-04-02 05:51] LABS: HEMATOCRIT 27.3 % (36.0-48.0); HEMOGLOBIN 8.8 g/dL (12.0-16.0); MEAN CORPUS HGB CONC 32.2 g/dL (32.0-36.0); MEAN CORPUSCULAR HEMOGLOB 30.8 pg (26.0-34.0); MEAN CORPUSCULAR VOLUME 95.5 fL (80-100); MEAN PLATELET VOLUME 10.6 fL (9.2-13.0); PLATELET COUNT 108 10/3/uL (150-400); RBC DISTRIBUTION WIDTH 17.4 % (12.0-16.0); RED CELL COUNT 2.86 10/6/uL (4.0-5.6); WHITE BLOOD CELLS 3.1 10/3/uL (4.5-10.5)
[2017-04-02 05:55] LABS: MANUAL DIFF YES %
[2017-04-02 06:07] LABS: A/G RATIO 0.5 (0.7-1.9); ALBUMIN 1.5 G/DL (3.5-5.0); BUN (BLOOD UREA NITROGEN) 22 MG/DL (6-23); CALCIUM, SERUM 8.6 MG/DL (8.5-10.4); CHLORIDE, SERUM 112 MMOL/L (96-112); CO2 (CARBON DIOXIDE) 26 MMOL/L (24-34); CREATININE 0.53 MG/DL (0.55-1.02); GFR AFRICAN AMERICAN 107 ML/MIN (>=60); GFR NON AFRICAN AMERICAN 92 ML/MIN (>=60); GLOBULIN 3.1 G/DL (2.5-4.1); POTASSIUM, SERUM 3.4 MMOL/L (3.5-5.3); SGOT(AST) 49 U/L (5-40); SGPT(ALT) 45 U/L (5-65); SODIUM, SERUM 146 MMOL/L (135-148); TOTAL BILIRUBIN 0.8 MG/DL (0-1.2); TOTAL PROTEIN 4.6 G/DL (6.0-8.5)
[2017-04-02 06:13] LABS: ALKALINE PHOSPHATASE 406 U/L (45-117); GLUCOSE, SERUM 129 MG/DL (60-99)
[2017-04-02 06:36] LABS: PROCALCITONIN 2.37 ng/mL (<0.5)
[2017-04-02 06:43] LABS: ANISOCYTOSIS 1+ (5-10/OIF) (0-5/OIF); BAND NEUTROPHILS 32 %; EOSINOPHILS 1 %; EOSINOPHILS ABSOLUTE (CALC) 0.03 10/3/uL (0.0-0.53); IMMATURE GRANS ABSOLUTE (CALC) 0.12 10/3/uL (0.0-0.11); LYMPHOCYTES 17 %; LYMPHOCYTES ABSOLUTE (CALC) 0.53 10/3/uL (0.67-4.30); METAMYELOCYTES 3 %; MONOCYTES 4 %; MONOCYTES ABSOLUTE (CALC) 0.12 10/3/uL (0.21-1.20); MYELOCYTES 1 %; NEUTROPHILS ABSOLUTE (CALC) 2.29 10/3/uL (2.02-8.40); PLATELET ESTIMATE SLT DEC (ADEQUATE); SEGMENTED NEUTROPHIL (0) 42 %; TOTAL NUCLEATED CELLS 100
[2017-04-02 06:44] LABS: MACROCYTES 1+ (5-10/OIF) (0-5/OIF)
[2017-04-03 05:23] LABS: HEMOGLOBIN 7.7 g/dL (12.0-16.0); MEAN CORPUS HGB CONC 32.9 g/dL (32.0-36.0); MEAN CORPUSCULAR HEMOGLOB 31.4 pg (26.0-34.0); MEAN CORPUSCULAR VOLUME 95.5 fL (80-100); MEAN PLATELET VOLUME 10.6 fL (9.2-13.0); PLATELET COUNT 91 10/3/uL (150-400); RBC DISTRIBUTION WIDTH 17.4 % (12.0-16.0); RED CELL COUNT 2.45 10/6/uL (4.0-5.6); WHITE BLOOD CELLS 3.3 10/3/uL (4.5-10.5)
[2017-04-03 05:26] LABS: HEMATOCRIT 23.4 % (36.0-48.0); MANUAL DIFF YES %
[2017-04-03 05:28] LABS: A/G RATIO 0.6 (0.7-1.9); ALBUMIN 1.5 G/DL (3.5-5.0); BUN (BLOOD UREA NITROGEN) 20 MG/DL (6-23); CALCIUM, SERUM 7.9 MG/DL (8.5-10.4); CHLORIDE, SERUM 112 MMOL/L (96-112); CO2 (CARBON DIOXIDE) 26 MMOL/L (24-34); CREATININE 0.53 MG/DL (0.55-1.02); GFR AFRICAN AMERICAN 107 ML/MIN (>=60); GFR NON AFRICAN AMERICAN 92 ML/MIN (>=60); GLOBULIN 2.7 G/DL (2.5-4.1); GLUCOSE, SERUM 128 MG/DL (60-99); POTASSIUM, SERUM 3.3 MMOL/L (3.5-5.3); SGOT(AST) 53 U/L (5-40); SGPT(ALT) 40 U/L (5-65); SODIUM, SERUM 146 MMOL/L (135-148); TOTAL BILIRUBIN 0.4 MG/DL (0-1.2); TOTAL PROTEIN 4.2 G/DL (6.0-8.5)
[2017-04-03 05:30] LABS: ALKALINE PHOSPHATASE 360 U/L (45-117)
[2017-04-03 06:18] LABS: BAND NEUTROPHILS 19 %; LYMPHOCYTES 11 %; LYMPHOCYTES ABSOLUTE (CALC) 0.36 10/3/uL (0.67-4.30); METAMYELOCYTES 3 %; MONOCYTES 2 %; MONOCYTES ABSOLUTE (CALC) 0.07 10/3/uL (0.21-1.20); NEUTROPHILS ABSOLUTE (CALC) 2.77 10/3/uL (2.02-8.40); SEGMENTED NEUTROPHIL (0) 65 %; TOTAL NUCLEATED CELLS 100
[2017-04-03 06:19] LABS: ANISOCYTOSIS 1+ (5-10/OIF) (0-5/OIF); PLATELET ESTIMATE DEC (ADEQUATE); POLYCHROMASIA 1+ (2-5/OIF) (0-1/OIF)
[2017-04-03 06:53] LABS: PROCALCITONIN 1.21 ng/mL (<0.5)
[2017-04-03 12:41] LABS: EB VCA AB IGG Positive (Negative); EB VCA AB IGM Positive (Negative); EBV NUCLEAR AB IGG Positive (Negative)
[2017-04-04 04:34] LABS: HEMATOCRIT 23.7 % (36.0-48.0); HEMOGLOBIN 7.5 g/dL (12.0-16.0); MEAN CORPUS HGB CONC 31.6 g/dL (32.0-36.0); MEAN CORPUSCULAR HEMOGLOB 30.6 pg (26.0-34.0); MEAN CORPUSCULAR VOLUME 96.7 fL (80-100); MEAN PLATELET VOLUME 10.6 fL (9.2-13.0); PLATELET COUNT 87 10/3/uL (150-400); RBC DISTRIBUTION WIDTH 17.3 % (12.0-16.0); RED CELL COUNT 2.45 10/6/uL (4.0-5.6)
[2017-04-04 04:37] LABS: MANUAL DIFF YES %; WHITE BLOOD CELLS 4.7 10/3/uL (4.5-10.5)
[2017-04-04 04:51] LABS: A/G RATIO 0.5 (0.7-1.9); ALBUMIN 1.5 G/DL (3.5-5.0); CALCIUM, SERUM 7.6 MG/DL (8.5-10.4); CHLORIDE, SERUM 106 MMOL/L (96-112); CO2 (CARBON DIOXIDE) 26 MMOL/L (24-34); CREATININE 0.44 MG/DL (0.55-1.02); GFR AFRICAN AMERICAN 114 ML/MIN (>=60); GFR NON AFRICAN AMERICAN 98 ML/MIN (>=60); GLOBULIN 2.8 G/DL (2.5-4.1); POTASSIUM, SERUM 3.2 MMOL/L (3.5-5.3); SGOT(AST) 47 U/L (5-40); SGPT(ALT) 40 U/L (5-65); SODIUM, SERUM 142 MMOL/L (135-148); TOTAL BILIRUBIN 0.4 MG/DL (0-1.2); TOTAL PROTEIN 4.3 G/DL (6.0-8.5)
[2017-04-04 04:53] LABS: ALKALINE PHOSPHATASE 330 U/L (45-117); BUN (BLOOD UREA NITROGEN) 15 MG/DL (6-23); GLUCOSE, SERUM 97 MG/DL (60-99)
[2017-04-04 04:57] LABS: ANISOCYTOSIS 1+ (5-10/OIF) (0-5/OIF); BAND NEUTROPHILS 15 %; IMMATURE GRANS ABSOLUTE (CALC) 0.24 10/3/uL (0.0-0.11); LYMPHOCYTES 14 %; LYMPHOCYTES ABSOLUTE (CALC) 0.66 10/3/uL (0.67-4.30); METAMYELOCYTES 3 %; MONOCYTES 3 %; MONOCYTES ABSOLUTE (CALC) 0.14 10/3/uL (0.21-1.20); MYELOCYTES 2 %; NEUTROPHILS ABSOLUTE (CALC) 3.67 10/3/uL (2.02-8.40); PLATELET ESTIMATE DEC (ADEQUATE); SEGMENTED NEUTROPHIL (0) 63 %; TOTAL NUCLEATED CELLS 100
[2017-04-05 03:59] LABS: HEMATOCRIT 25.5 % (36.0-48.0); HEMOGLOBIN 8.4 g/dL (12.0-16.0); MEAN CORPUS HGB CONC 32.9 g/dL (32.0-36.0); MEAN CORPUSCULAR HEMOGLOB 31.6 pg (26.0-34.0); MEAN CORPUSCULAR VOLUME 95.9 fL (80-100); PLATELET COUNT 95 10/3/uL (150-400); RBC DISTRIBUTION WIDTH 17.1 % (12.0-16.0); RED CELL COUNT 2.66 10/6/uL (4.0-5.6)
[2017-04-05 04:01] LABS: MANUAL DIFF YES %; WHITE BLOOD CELLS 7.9 10/3/uL (4.5-10.5)
[2017-04-05 04:18] LABS: A/G RATIO 0.6 (0.7-1.9); ALBUMIN 1.7 G/DL (3.5-5.0); ALKALINE PHOSPHATASE 327 U/L (45-117); BUN (BLOOD UREA NITROGEN) 12 MG/DL (6-23); CHLORIDE, SERUM 104 MMOL/L (96-112); CREATININE 0.46 MG/DL (0.55-1.02); GFR AFRICAN AMERICAN 112 ML/MIN (>=60); GFR NON AFRICAN AMERICAN 97 ML/MIN (>=60); GLOBULIN 2.7 G/DL (2.5-4.1); GLUCOSE, SERUM 98 MG/DL (60-99); SGOT(AST) 43 U/L (5-40); SGPT(ALT) 43 U/L (5-65); SODIUM, SERUM 142 MMOL/L (135-148); TOTAL PROTEIN 4.4 G/DL (6.0-8.5)
[2017-04-05 04:23] LABS: CO2 (CARBON DIOXIDE) 33 MMOL/L (24-34); POTASSIUM, SERUM 2.7 MMOL/L (3.5-5.3); TOTAL BILIRUBIN 0.9 MG/DL (0-1.2)
[2017-04-05 05:44] LABS: BAND NEUTROPHILS 32 %; IMMATURE GRANS ABSOLUTE (CALC) 0.47 10/3/uL (0.0-0.11); LYMPHOCYTES 11 %; LYMPHOCYTES ABSOLUTE (CALC) 0.87 10/3/uL (0.67-4.30); METAMYELOCYTES 6 %; NEUTROPHILS ABSOLUTE (CALC) 6.56 10/3/uL (2.02-8.40); PLATELET ESTIMATE DEC (ADEQUATE); SEGMENTED NEUTROPHIL (0) 51 %; TOTAL NUCLEATED CELLS 100
[2017-04-05 05:45] LABS: HYPOCHROMIA 1+ (3-10/OIF) (0-2/OIF); MACROCYTES 1+ (5-10/OIF) (0-5/OIF); MICROCYTES 1+ (5-10/OIF) (0-5/OIF); POLYCHROMASIA 1+ (2-5/OIF) (0-1/OIF); TEARDROP SHAPED RBCS OCC (0-2/OIF)
[2017-04-06 06:00] LABS: BASOPHILS 0.2 %; BASOPHILS ABSOLUTE 0.02 10/3/uL (0.0-0.16); EOSINOPHILS 0.2 %; EOSINOPHILS ABSOLUTE 0.02 10/3/uL (0.0-0.53); HEMATOCRIT 26.8 % (36.0-48.0); HEMOGLOBIN 8.5 g/dL (12.0-16.0); IMMATURE GRANULOCYTES 10.3 %; IMMATURE GRANULOCYTES ABSOLUTE 0.95 10/3/uL (0.0-0.11); LYMPHOCYTES 12.8 %; LYMPHOCYTES ABSOLUTE 1.18 10/3/uL (0.67-4.30); MEAN CORPUS HGB CONC 31.7 g/dL (32.0-36.0); MEAN CORPUSCULAR VOLUME 97.8 fL (80-100); MEAN PLATELET VOLUME 10.4 fL (9.2-13.0); MONOCYTES 1.1 %; NEUTROPHILS 75.4 %; NEUTROPHILS ABSOLUTE 6.96 10/3/uL (2.02-8.40); PLATELET COUNT 113 10/3/uL (150-400); RBC DISTRIBUTION WIDTH 17.7 % (12.0-16.0); RED CELL COUNT 2.74 10/6/uL (4.0-5.6); WHITE BLOOD CELLS 9.2 10/3/uL (4.5-10.5)
[2017-04-06 06:04] LABS: MANUAL DIFF NO %
[2017-04-06 06:16] LABS: A/G RATIO 0.7 (0.7-1.9); ALBUMIN 1.8 G/DL (3.5-5.0); ALKALINE PHOSPHATASE 310 U/L (45-117); BUN (BLOOD UREA NITROGEN) 10 MG/DL (6-23); CALCIUM, SERUM 7.9 MG/DL (8.5-10.4); CHLORIDE, SERUM 100 MMOL/L (96-112); CO2 (CARBON DIOXIDE) 31 MMOL/L (24-34); GFR AFRICAN AMERICAN 117 ML/MIN (>=60); GFR NON AFRICAN AMERICAN 101 ML/MIN (>=60); GLOBULIN 2.7 G/DL (2.5-4.1); GLUCOSE, SERUM 98 MG/DL (60-99); SGOT(AST) 35 U/L (5-40); SGPT(ALT) 43 U/L (5-65); SODIUM, SERUM 137 MMOL/L (135-148); TOTAL BILIRUBIN 1.1 MG/DL (0-1.2); TOTAL PROTEIN 4.5 G/DL (6.0-8.5)
[2017-04-06 06:37] LABS: ANISOCYTOSIS 1+ (5-10/OIF) (0-5/OIF); BAND NEUTROPHILS 32 %; IMMATURE GRANS ABSOLUTE (CALC) 0.18 10/3/uL (0.0-0.11); LYMPHOCYTES 6 %; LYMPHOCYTES ABSOLUTE (CALC) 0.55 10/3/uL (0.67-4.30); METAMYELOCYTES 2 %; MONOCYTES 2 %; MONOCYTES ABSOLUTE (CALC) 0.18 10/3/uL (0.21-1.20); NEUTROPHILS ABSOLUTE (CALC) 8.28 10/3/uL (2.02-8.40); PLATELET ESTIMATE SLT DEC (ADEQUATE); SEGMENTED NEUTROPHIL (0) 58 %; TOTAL NUCLEATED CELLS 100
[2017-04-06 06:38] LABS: POLYCHROMASIA 1+ (2-5/OIF) (0-1/OIF); TOXIC GRANULATION 1+
[2017-04-07 03:41] LABS: HEMATOCRIT 26.4 % (36.0-48.0); HEMOGLOBIN 8.6 g/dL (12.0-16.0); MEAN CORPUS HGB CONC 32.6 g/dL (32.0-36.0); MEAN CORPUSCULAR VOLUME 98.1 fL (80-100); MEAN PLATELET VOLUME 10.9 fL (9.2-13.0); PLATELET COUNT 120 10/3/uL (150-400); RED CELL COUNT 2.69 10/6/uL (4.0-5.6); WHITE BLOOD CELLS 9.8 10/3/uL (4.5-10.5)
[2017-04-07 03:44] LABS: MANUAL DIFF YES %
[2017-04-07 04:00] LABS: A/G RATIO 0.7 (0.7-1.9); ALBUMIN 1.9 G/DL (3.5-5.0); ALKALINE PHOSPHATASE 303 U/L (45-117); BUN (BLOOD UREA NITROGEN) 9 MG/DL (6-23); CALCIUM, SERUM 8.1 MG/DL (8.5-10.4); CHLORIDE, SERUM 104 MMOL/L (96-112); CO2 (CARBON DIOXIDE) 29 MMOL/L (24-34); CREATININE 0.36 MG/DL (0.55-1.02); GFR AFRICAN AMERICAN 121 ML/MIN (>=60); GFR NON AFRICAN AMERICAN 105 ML/MIN (>=60); GLOBULIN 2.7 G/DL (2.5-4.1); GLUCOSE, SERUM 125 MG/DL (60-99); POTASSIUM, SERUM 3.3 MMOL/L (3.5-5.3); SGOT(AST) 37 U/L (5-40); SGPT(ALT) 46 U/L (5-65); SODIUM, SERUM 140 MMOL/L (135-148); TOTAL BILIRUBIN 0.5 MG/DL (0-1.2); TOTAL PROTEIN 4.6 G/DL (6.0-8.5)
[2017-04-07 04:33] LABS: BAND NEUTROPHILS 37 %; IMMATURE GRANS ABSOLUTE (CALC) 0.39 10/3/uL (0.0-0.11); LYMPHOCYTES 12 %; LYMPHOCYTES ABSOLUTE (CALC) 1.18 10/3/uL (0.67-4.30); METAMYELOCYTES 3 %; MYELOCYTES 1 %; NEUTROPHILS ABSOLUTE (CALC) 8.23 10/3/uL (2.02-8.40); PLATELET ESTIMATE SLT DEC (ADEQUATE); SEGMENTED NEUTROPHIL (0) 47 %; TOTAL NUCLEATED CELLS 100
[2017-04-07 04:34] LABS: ANISOCYTOSIS 1+ (5-10/OIF) (0-5/OIF); POLYCHROMASIA 1+ (2-5/OIF) (0-1/OIF); TOXIC GRANULATION SLT
[2017-04-08 07:30] LABS: BUN (BLOOD UREA NITROGEN) 10 MG/DL (6-23); CALCIUM, SERUM 8.3 MG/DL (8.5-10.4); CHLORIDE, SERUM 104 MMOL/L (96-112); CO2 (CARBON DIOXIDE) 30 MMOL/L (24-34); CREATININE 0.29 MG/DL (0.55-1.02); GFR AFRICAN AMERICAN 130 ML/MIN (>=60); GFR NON AFRICAN AMERICAN 112 ML/MIN (>=60); GLUCOSE, SERUM 117 MG/DL (60-99); POTASSIUM, SERUM 3.3 MMOL/L (3.5-5.3); SODIUM, SERUM 140 MMOL/L (135-148)
[2017-04-09 05:29] LABS: HEMOGLOBIN 9.2 g/dL (12.0-16.0); MEAN CORPUS HGB CONC 31.7 g/dL (32.0-36.0); MEAN CORPUSCULAR HEMOGLOB 31.3 pg (26.0-34.0); MEAN CORPUSCULAR VOLUME 98.6 fL (80-100); MEAN PLATELET VOLUME 10.3 fL (9.2-13.0); PLATELET COUNT 145 10/3/uL (150-400); RBC DISTRIBUTION WIDTH 19.5 % (12.0-16.0); RED CELL COUNT 2.94 10/6/uL (4.0-5.6); WHITE BLOOD CELLS 12.1 10/3/uL (4.5-10.5)
[2017-04-09 05:30] LABS: MANUAL DIFF YES %
[2017-04-09 05:47] LABS: BUN (BLOOD UREA NITROGEN) 11 MG/DL (6-23); CALCIUM, SERUM 9.1 MG/DL (8.5-10.4); CHLORIDE, SERUM 105 MMOL/L (96-112); CO2 (CARBON DIOXIDE) 27 MMOL/L (24-34); CREATININE 0.36 MG/DL (0.55-1.02); GFR AFRICAN AMERICAN 121 ML/MIN (>=60); GFR NON AFRICAN AMERICAN 105 ML/MIN (>=60); GLUCOSE, SERUM 75 MG/DL (60-99); POTASSIUM, SERUM 3.5 MMOL/L (3.5-5.3); SODIUM, SERUM 141 MMOL/L (135-148)
[2017-04-09 05:54] LABS: ANISOCYTOSIS 1+ (5-10/OIF) (0-5/OIF); BAND NEUTROPHILS 37 %; IMMATURE GRANS ABSOLUTE (CALC) 0.24 10/3/uL (0.0-0.11); LYMPHOCYTES 6 %; LYMPHOCYTES ABSOLUTE (CALC) 0.73 10/3/uL (0.67-4.30); METAMYELOCYTES 2 %; NEUTROPHILS ABSOLUTE (CALC) 11.13 10/3/uL (2.02-8.40); PLATELET ESTIMATE SLT DEC (ADEQUATE); POLYCHROMASIA 1+ (2-5/OIF) (0-1/OIF); SEGMENTED NEUTROPHIL (0) 55 %; TOTAL NUCLEATED CELLS 100; TOXIC GRANULATION 1+
[2017-04-09 13:33] LABS: CPK 11 U/L (0-200)
[2017-04-10 16:42] LABS: EBV DNA QNT LOG COPIES >6.0 (NOTDET); EBV DNA QNT PCR >1000000 (()); SPECIMEN SOURCE Serum (())
[2017-04-11 07:24] LABS: HEMATOCRIT 30.3 % (36.0-48.0); HEMOGLOBIN 9.5 g/dL (12.0-16.0); MEAN CORPUS HGB CONC 31.4 g/dL (32.0-36.0); MEAN CORPUSCULAR HEMOGLOB 31.1 pg (26.0-34.0); MEAN CORPUSCULAR VOLUME 99.3 fL (80-100); MEAN PLATELET VOLUME 10.1 fL (9.2-13.0); PLATELET COUNT 177 10/3/uL (150-400); RBC DISTRIBUTION WIDTH 20.4 % (12.0-16.0); RED CELL COUNT 3.05 10/6/uL (4.0-5.6); WHITE BLOOD CELLS 8.6 10/3/uL (4.5-10.5)
[2017-04-11 07:25] LABS: MANUAL DIFF YES %
[2017-04-11 07:38] LABS: BUN (BLOOD UREA NITROGEN) 15 MG/DL (6-23); CALCIUM, SERUM 9.4 MG/DL (8.5-10.4); CHLORIDE, SERUM 107 MMOL/L (96-112); CO2 (CARBON DIOXIDE) 29 MMOL/L (24-34); CREATININE 0.41 MG/DL (0.55-1.02); GFR AFRICAN AMERICAN 116 ML/MIN (>=60); GFR NON AFRICAN AMERICAN 100 ML/MIN (>=60); GLUCOSE, SERUM 95 MG/DL (60-99); POTASSIUM, SERUM 3.2 MMOL/L (3.5-5.3); SODIUM, SERUM 141 MMOL/L (135-148)
[2017-04-11 07:45] LABS: ANISOCYTOSIS 1+ (5-10/OIF) (0-5/OIF); BAND NEUTROPHILS 8 %; LYMPHOCYTES 9 %; LYMPHOCYTES ABSOLUTE (CALC) 0.77 10/3/uL (0.67-4.30); NEUTROPHILS ABSOLUTE (CALC) 7.83 10/3/uL (2.02-8.40); PLATELET ESTIMATE ADQ (ADEQUATE); SEGMENTED NEUTROPHIL (0) 83 %; TOTAL NUCLEATED CELLS 100
[2017-04-12 07:20] LABS: HEMATOCRIT 33.1 % (36.0-48.0); HEMOGLOBIN 10.2 g/dL (12.0-16.0); MANUAL DIFF YES %; MEAN CORPUS HGB CONC 30.8 g/dL (32.0-36.0); MEAN CORPUSCULAR HEMOGLOB 31.2 pg (26.0-34.0); MEAN CORPUSCULAR VOLUME 101.2 fL (80-100); MEAN PLATELET VOLUME 9.8 fL (9.2-13.0); PLATELET COUNT 137 10/3/uL (150-400); RED CELL COUNT 3.27 10/6/uL (4.0-5.6)
[2017-04-12 07:23] LABS: BUN (BLOOD UREA NITROGEN) 17 MG/DL (6-23); CHLORIDE, SERUM 105 MMOL/L (96-112); CO2 (CARBON DIOXIDE) 27 MMOL/L (24-34); CREATININE 0.43 MG/DL (0.55-1.02); GFR AFRICAN AMERICAN 115 ML/MIN (>=60); GFR NON AFRICAN AMERICAN 99 ML/MIN (>=60); GLUCOSE, SERUM 100 MG/DL (60-99); POTASSIUM, SERUM 3.8 MMOL/L (3.5-5.3); SODIUM, SERUM 140 MMOL/L (135-148)
[2017-04-12 08:08] LABS: BAND NEUTROPHILS 3 %; LYMPHOCYTES 20 %; MONOCYTES 4 %; MONOCYTES ABSOLUTE (CALC) 0.28 10/3/uL (0.21-1.20); NEUTROPHILS ABSOLUTE (CALC) 5.32 10/3/uL (2.02-8.40); SEGMENTED NEUTROPHIL (0) 73 %; TOTAL NUCLEATED CELLS 100
[2017-04-12 08:09] LABS: ANISOCYTOSIS 1+ (5-10/OIF) (0-5/OIF); MACROCYTES 1+ (5-10/OIF) (0-5/OIF); PLATELET ESTIMATE SLT DEC (ADEQUATE)
[2017-06-28] MEDS ORDERED: TEARS PLUS OPH (15:01)
[2017-06-28] MEDS ORDERED: ZYRTEC ALLGY10 MG PO (15:02)
[2017-06-28] MEDS ORDERED: ALIGN4 MG PO (15:02)
[2017-06-28] MEDS ORDERED: ULTRAM50 PO (15:05)
[2017-06-28] MEDS ORDERED: VITAMIN D2000 UNIT PO (15:05)
[2017-06-28] MEDS ORDERED: ACET500CAP PO (15:06)
[2017-06-28] MEDS ORDERED: ZOFRAN ODT4 MG PO (15:06)
[2017-07-02] MEDS ORDERED: VANCOCIN HCL125 MG PO (12:17)
[2017-07-02] MEDS ORDERED: ZITHROMAX500 MG PO (12:17)
[2017-08-09] MEDS ORDERED: ACET500CAP PO (12:15)
[2017-08-09] MEDS ORDERED: DEX4 PO (12:17)
[2017-08-09] MEDS ORDERED: BION TEARS OPH (12:17)
[2017-08-09] MEDS ORDERED: ELIQUIS 2.5 MG2.5 MG PO (12:17)
[2017-08-09] MEDS ORDERED: SYN075 PO (12:18)
[2017-08-09] MEDS ORDERED: PROBIOTIC PO (12:18)
[2017-08-09] MEDS ORDERED: VITAMIN D2000 UNIT PO (12:18)
[2017-08-09] MEDS ORDERED: CHEMOTHERAPY IV (12:19)
== END 2017-04-12 15:00 | DRG 871 ==
LOC: ER 15:56 → 5SO 21:32 → IMCU 03-04 20:25 → 4EA 03-11 15:13
PROVIDERS: Emergency Medicine; Internal Medicine; Internal Medicine Gastroenterology; Internal Medicine Infectious Disease; Nurse Practitioner Adult Health; Nurse Practitioner Family; Plastic Surgery; Surgery
PROC: 3E0336Z Introduction of Nutritional Substance into Peripheral Vein, Percutaneous Approach (ICD-10-PCS; principal; 2017-03-23 09:30)
PROC: 0DH63UZ Insertion of Feeding Device into Stomach, Percutaneous Approach (ICD-10-PCS; principal; 2017-03-23 09:30)
DX: A41.9 Sepsis, unspecified organism (principal); E43 Unspecified severe protein-calorie malnutrition; A04.7 Enterocolitis due to Clostridium difficile; G92 Toxic encephalopathy; E86.0 Dehydration; C34.90 Malignant neoplasm of unspecified part of unspecified bronchus or lung; D70.1 Agranulocytosis secondary to cancer chemotherapy; E03.9 Hypothyroidism, unspecified; E87.6 Hypokalemia; M19.90 Unspecified osteoarthritis, unspecified site; Z96.642 Presence of left artificial hip joint; Z86.718 Personal history of other venous thrombosis and embolism; Z85.118 Personal history of other malignant neoplasm of bronchus and lung; Z86.711 Personal history of pulmonary embolism; Z82.3 Family history of stroke; Z79.899 Other long term (current) drug therapy; Z90.710 Acquired absence of both cervix and uterus; K12.1 Other forms of stomatitis
CPT/HCPCS: 36569; 71010; 71250; 73502-LT; 74000; 74020; 74150; 74176; 74177; 74230; 76705; 78227; 80048; 80053; 80069; 80170; 80202; 81001; 82140; 82150; 82247; 82248; 82330; 82533; 82550; 82607; 82728; 82746; 82962; 83540; 83550; 83605; 83615; 83690; 83735; 84100; 84134; 84145; 84439; 84443; 84478; 85025; 85610; 85730; 86664; 86665; 86665-59; 86666; 86666-59; 86757; 86757-59; 87015; 87040; 87070; 87077; 87103; 87116; 87150; 87186; 87328; 87329; 87493; 87493-59; 87496; 87497; 87641; 87799; 89055; 92611-GN; 93005; 97110-GP; 97116-GP; 97161-GP; 97164-GP; 97166-GO; 97530-GP; 99285; A9270-GY; A9537; C1751; G8978-CM-GP; G8979-CL-GP; G8987-CL-GO; G8988-CK-GO; G8996-CJ-GN; G8997-CJ-GN; G8998-CJ-GN; J0878; J1447; J1580; J1885; J1940; J2248; J2405; J2543; J2765; J2805; J3370; J3475; P9047; Q9967